=== PATIENT | female | born 1950 | race African-American/Black ===

== ENCOUNTER 2016-10-10 07:09 | Inpatient (IN) ==
[~2016-10-10 07:09] MED LIST: CLINDAMYCIN INJ 900 MG in PREMIX 1 EACH IV ONE; DIAZEPAM 5 MG TABLET PO ONE; FAMOTIDINE 20 MG TABLET PO ONE; LACTATED RINGERS 1,000 ML IV SCH; VANCOMYCIN INJ 1,000 MG in SODIUM CHLORIDE 0.9% 250 ML IV ONE
--- NOTE | 2016-10-10 07:33 | EKG Report ---
Stationary ECG Study [facility] Test Date: 10/10/2016 7:31:06 AM Pat Name: RAYMUNDO PARRY Department: Room: 612 Gender: F Pre Owned Sales Consultant: VEENA : 1950 Requested by: Jatinder Siddiqi Order Number: [id number] Reading MD: JUANITA BEAVER Intervals [place] Rate: 61 P: 10 [place]: 201 QRS: -11 QRSD: 104 T: 0 QT: 399 QTc: 403 Interpretive Statements SINUS RHYTHM POSSIBLE ANTERIOR MYOCARDIAL INFARCTION, PROBABLY OLD Electronically Signed On 10-10-16 09:31:07 CDT by JUANITA BEAVER [email or web address]
[2016-10-10] MEDS ORDERED: DIAZEPAM 5 MG TABLET ONE (09:20)
[2016-10-10] MEDS ORDERED: FAMOTIDINE 20 MG TABLET ONE (09:20)
[2016-10-10] MEDS ORDERED: CLINDAMYCIN INJ 50 ML IV ONE (09:21)
[2016-10-10] MEDS ORDERED: VANCOMYCIN 1,000 MG VIAL ONE (10:26)
[2016-10-10] MEDS ORDERED: SODIUM CHLORIDE 0.9% 250 ML IV ONE (10:27)
[2016-10-10] MEDS ORDERED: VANCOMYCIN INJ 1,000 MG in SODIUM CHLORIDE 0.9% 250 ML IV ONE ×3 (10:30→22:00)
--- NOTE | 2016-10-10 10:40 | History and Physical Update ---
History and Physical Update - History and Physical H&P was reviewed, the patient examined and there: are no changes in the patients condition since last H&P was completed.
[2016-10-10] MEDS ORDERED: ONDANSETRON 4 MG/2 ML VIAL IV PRN ×2 (12:40→15:16)
[2016-10-10] MEDS ORDERED: ZALEPLON 5 MG CAPSULE PO PRN (12:40)
[2016-10-10] MEDS ORDERED: oxyCODONE IR 5 MG TABLET PO PRN ×2 (12:40)
[2016-10-10] MEDS ORDERED: MORPHINE 2 MG/1 ML SYRINGE IV PRN ×2 (12:40)
[2016-10-10] MEDS ORDERED: diphenhydrAMINE CAP 25 MG CAPSULE PO PRN (12:40)
--- NOTE | 2016-10-10 12:46 | Operative Note ---
Procedure: DIAGNOSIS: Left knee primary osteoarthrosis. History of previous distal and midshaft femur fractures with retained femoral nail PROCEDURE: Left total knee arthroplasty (cpt #62944) SURGEON: Frankie ANESTHESIA: Spinal converted to general with a postoperative adductor canal block PROCEDURE and FINDINGS: After adequate was induced, the patient's knee was prepped and draped in the usual sterile fashion. The limb was exsanguinated with Esmarch. Tourniquet was inflated to 300 mmHg. A median parapatellar approach was made. Femur was cut using the Trumatch guide for the distal cut. and a 4 in 1 cutting jig in 5 degrees of valgus. ACL and menisci were excised. Tibia was cut using intramedullary guide. Patella was cut using freehand technique. Components were trialed. Tibial fin was prepared. Components are cemented in place using Palacos cement and modern cementing techniques. Cement was removed. A 1/8 inch Hemovac drain was placed. The knee was well-balanced and full range of motion with central tracking patella. Deep layers closed with 0-0 Vicryl. Superficial layers were closed with 2-0 and 3-0 Vicryl. Skin was approximated with priscila. Bacitracin and a sterile dressing was applied. Patient was transferred to recovery. A postoperative adductor canal block is anticipated. COMPONENTS: The Modusly system was used. 5 left standard femur, 5 tibia, 6 liner, 35 mm patella TOURNIQUET TIME: 60 minutes Surgeon / Physician: Jatinder David Jr. Discharge Plan - Discharge Medications No Action Atenolol/Chlorthalidone [Atenolol-Chlorthalidone 100-25] 1 each PO DAILY Aspirin [Ecotrin] 81 mg PO DAILY Naproxen Sodium [Naprelan] 500 mg PO BID Cetirizine HCl [Cetirizine Tab] 10 mg PO DAILY - Follow Up or Referral - Forms/Instructions
[2016-10-10] MEDS ORDERED: TRANEXAMIC ACID 1,000 MG/10 ML VIAL IV ONE (13:55)
[2016-10-10] MEDS ORDERED: MIDAZOLAM 2 MG/2 ML VIAL ONE (14:29)
[2016-10-10] MEDS ORDERED: SODIUM CHLORIDE 0.9% 1,000 ML IV ONE (14:29)
[2016-10-10] MEDS ORDERED: fentaNYL 100 MCG/2 ML VIAL ONE (14:29)
[2016-10-10] MEDS ORDERED: ACETAMINOPHEN 1,000 MG/100 ML VIAL IV ONE (14:29)
[2016-10-10] MEDS ORDERED: ePHEDrine 50 MG/ML AMP ONE (14:29)
[2016-10-10] MEDS ORDERED: SODIUM CHLORIDE 0.9% 100 ML IV ONE (14:29)
[2016-10-10] MEDS ORDERED: SEVOFLURANE 1 UNIT/15 MINUTE INH ONE (14:33)
[2016-10-10] MEDS ORDERED: ROPIVACAINE 0.5% 30 ML VIAL ONE (14:57)
[2016-10-10] MEDS ORDERED: HYDROmorphone 2 MG/1 ML VIAL ONE (15:00)
[2016-10-10] MEDS ORDERED: HYDROmorphone 2 MG/1 ML VIAL IV PRN (15:16)
[2016-10-10] MEDS ORDERED: KETOROLAC 30 MG/1 ML VIAL ONE (15:36)
[2016-10-10] MEDS: KETOROLAC 30 MG/1 ML VIAL IV SCH ×2 (15:40→21:58)
--- NOTE | 2016-10-10 15:54 | XRay Report ---
Left knee, 2 views. Indication: Postoperative. Comparison: April 20, 2015. There has been a left total knee replacement. The hardware is in good position. Surgical drains and skin priscila project over the soft tissues. There has previously been noted to be an intramedullary chuck stabilizing a healed fracture of the femoral shaft. This chuck is still in place. The distal screw within this chuck is chronically fractured and angulated. Impression: Expected appearance of the total knee replacement. Evidence of old traumatic injury of the left femur, with a long-term intramedullary chuck having a broken screw distally. PROCEDURE INTERPRETED AT [facility] DEPARTMENT OF RADIOLOGY Final Report Signed by: Dr. Jeni Fajardo
[2016-10-10] MEDS: LACTATED RINGERS 1,000 ML IV SCH ×2 (16:25→23:36)
--- NOTE | 2016-10-10 16:30 | Pulmonology Progress Note ---
Pulmonary - PN: Subj Interval history: Patient is a 66-year-old black lady that is very overweight with degenerative arthritis. She has been having trouble with her left knee and came in for left knee replacement. A couple years ago she had a right knee replacement and did relatively well postop. She had surgery today and had no trouble with anesthesia. She says she is breathing okay but is hurting a lot. She feels like her knee is throbbing a good bit now. Otherwise she has been doing fairly well. Exam (Progress Note) - Constitutional Vitals: Period Temp Pulse Resp BP Sys/Ramesh Pulse Ox Last 24 Hr 97.1 F-98.0 F 57-66 12-20 123-172/77-103 92-100 General appearance: mild distress (She is starting to hurt a little.), over weight - Head Head exam: Present: normal inspection, normocephalic - Eye Eye exam: Present: EOMI. Absent: scleral icterus Pupils: Present: LISSET - ENT ENT exam: Present: normal exam - Neck Neck exam: Present: normal inspection. Absent: lymphadenopathy, thyromegaly - Respiratory Respiratory exam: Present: clear to auscultation bilaterally. Absent: wheezes - Cardiovascular Cardiovascular exam: Present: regular rate and rhythm. Absent: gallop, systolic murmur - GI/Abdominal GI/Abdominal exam: Present: normal bowel sounds, soft. Absent: organomegaly, tenderness - Extremities Exam Extremities exam: Present: other (Left leg is wrapped at present.). Absent: calf tenderness, edema - Neurological Exam Neurological exam: Present: alert, oriented X3, CN II-XII intact - Psychiatric Psychiatric exam: Present: normal affect - Skin Skin exam: Present: warm, dry Assessment and Plan (1) Degenerative arthritis Status: Acute Assessment and plan: The patient does have significant degenerative arthritis. She previously had a right knee replacement. Now she comes in for a left knee replacement Current Visit: Yes (2) Status post total left knee replacement Status: Acute Assessment and plan: She had surgery today and had her left knee replaced. She is doing very well postop so far. Current Visit: Yes (3) Obesity Status: Acute Assessment and plan: The patient is quite large with a BMI of 50. Current Visit: Yes (4) Hypertension Status: Acute Assessment and plan: Her blood pressure stable at this point. Current Visit: Yes
[2016-10-10] MEDS: ACETAMINOPHEN 500 MG TABLET PO SCH ×2 (16:49→21:57)
--- NOTE | 2016-10-10 17:31 | Anesthesia Post-Op ---
Anesthesia Post OP - Post Ansesthetic Evaluation Patient seen in post op: Yes Resp: within normal limits CV: within normal limits Mental: within normal limits Temp: within normal limits [id number]: within normal limits Nausea and Vomiting: within normal limits Pain: within normal limits
[2016-10-10] MEDS: CLINDAMYCIN INJ 900 MG in PREMIX 1 EACH IV SCH (17:40)
[2016-10-10] MEDS: DOCUSATE SODIUM 100 MG CAPSULE PO SCH (20:36)
[2016-10-11] MEDS: CLINDAMYCIN INJ 900 MG in PREMIX 1 EACH IV SCH (02:24)
[2016-10-11] MEDS: KETOROLAC 30 MG/1 ML VIAL IV SCH ×2 (04:49→09:14)
[2016-10-11] MEDS: ACETAMINOPHEN 500 MG TABLET PO SCH ×2 (04:49→09:41)
[2016-10-11 06:07] LABS: Basophils # 0.1 10*3/uL (0.0-0.2); Basophils % 0.4 % (0.0-0.8); Eosinophils # 0.1 10*3/uL (0.0-0.87); Eosinophils % 1.2 % (0.00-10.9); Hematocrit 39.5 VOL% (35.7-47.0); Immature Granulocytes % 2.8 %; Immature Granulocytes Absolute 0.33 #; Lymphocytes # 2.1 10*3/uL (1.4-4.0); Lymphocytes % 17.5 % (21.3-54.2); Mean Corpuscular HGB Conc 30.4 GM/DL (32-36); Mean Corpuscular Hemoglobin 24 PG (27-34); Mean Corpuscular Volume 78.4 FL (87-102); Mean Platelet Volume 10.5 FL (9.6-12.0); Monocytes # 1.5 10*3/uL (0.11-0.8); Monocytes % 13.2 % (1.7-12.7); Neutrophils # 7.6 10*3/uL (1.4-7.4); Neutrophils % 64.9 % (38.7-73.9); Platelet Count 208 T/CUMM (130-400); Red Blood Count 5.04 MC/CUMM (3.8-5.5); Red Cell Distribution Width 16.6 % (9.3-17.3); White Blood Count 11.7 T/CUMM (4-12)
[2016-10-11 06:34] LABS: Calcium 8.4 MG/DL (8.5-10.1); Osmolality,Calculated 284.4 MOS/KG (273-304)
--- NOTE | 2016-10-11 08:25 | Orthopedic Progress Note ---
Orthopedics - Subjective Interval history: Comfortable post op. nv ok. dressing dry. mobilize with therapy. Exam - Constitutional Vitals: Period Temp Pulse Resp BP Sys/Ramesh Pulse Ox Last 24 Hr 97.1 F-98.9 F 57-76 12-20 107-174/55-103 92-100 Results - Labs CBC & BMP: 10/11/16 04:34 10/11/16 04:34
--- NOTE | 2016-10-11 08:54 | Pulmonology Progress Note ---
Pulmonary - PN: Subj Interval history: Patient is a 66-year-old black lady that is very overweight with degenerative arthritis. She has been having trouble with her left knee and came in for left knee replacement. A couple years ago she had a right knee replacement and did relatively well postop. She had surgery and had no trouble with anesthesia. She had a fairly good night and is breathing okay. She still has some knee pain but feels better. She is going to start physical therapy today. Exam (Progress Note) - Constitutional Vitals: Period Temp Pulse Resp BP Sys/Ramesh Pulse Ox Last 24 Hr 97.1 F-98.9 F 57-76 12-20 107-174/55-103 92-100 Exam: General appearance: no distress (She is alert and looks reasonably comfortable now.), over weight - Head Head exam: Present: normal inspection, normocephalic - Eye Eye exam: Present: EOMI. Absent: scleral icterus Pupils: Present: LISSET - ENT ENT exam: Present: normal exam - Neck Neck exam: Present: normal inspection. Absent: lymphadenopathy, thyromegaly - Respiratory Respiratory exam: Present: clear to auscultation bilaterally. She has good breath sounds bilaterally. Absent: wheezes - Cardiovascular Cardiovascular exam: Present: regular rate and rhythm. Absent: gallop, systolic murmur - GI/Abdominal GI/Abdominal exam: Present: normal bowel sounds, soft. Absent: organomegaly, tenderness - Extremities Exam Extremities exam: Present: other (Left leg is wrapped at present.). Absent: calf tenderness, edema - Neurological Exam Neurological exam: Present: alert, oriented X3, CN II-XII intact, no focal deficits. - Psychiatric Psychiatric exam: Present: normal affect - Skin Skin exam: Present: warm, dry Results - Labs CBC & BMP: 10/11/16 04:34 10/11/16 04:34 Assessment and Plan (1) Degenerative arthritis Status: Acute Assessment and plan: The patient does have significant degenerative arthritis. She previously had a right knee replacement. Now she comes in for a left knee replacement. Current Visit: Yes (2) Status post total left knee replacement Status: Acute Assessment and plan: She had surgery and had a left knee replacement. She is very sore through the night but is doing better today. She will start physical therapy today. Current Visit: Yes (3) Obesity Status: Acute Assessment and plan: The patient is quite large with a BMI of 50. Current Visit: Yes (4) Hypertension Status: Acute Assessment and plan: Her blood pressure stable at this point. She appears to be medically stable. Current Visit: Yes
[2016-10-11] MEDS ORDERED: KETOROLAC 30 MG/1 ML VIAL ONE (09:06)
[2016-10-11] MEDS: DOCUSATE SODIUM 100 MG CAPSULE PO SCH ×2 (09:12→21:31)
[2016-10-11] MEDS: CETIRIZINE 10 MG TABLET PO SCH (09:13)
[2016-10-11] MEDS: ATENOLOL/CHLORTHALIDONE 50-25 MG TABLET PO SCH (09:15)
[2016-10-11] MEDS: FONDAPARINUX 2.5 MG/0.5 ML SYRINGE SUBCUT SCH (09:16)
[2016-10-11] MEDS: ATENOLOL 50 MG TABLET PO SCH (09:16)
--- NOTE | 2016-10-11 14:29 | Pathology Report from [facility] ---
[facility] ACCESSION # : [id number] PATIENT NAME : Raymundo Parry ORDERING DR : LORE RUSSO MD CLINICAL HX: Left knee osteoarthritis POST-OP DX: Same SPECIMEN INFO: Left knee bone and tissue GROSS DESCRIPTION: The specimen is received in formalin labeled with the patients name and consists of multiple fragments of bone, soft tissue and cartilage measuring 13.0 x 6.5 cm in aggregate. The articular surfaces are focally degenerative with areas of subchondral eburnation seen. Skein Tier tissue submitted in one cassette. DIAGNOSIS FOR RAYMUNDO PARRY: LEFT KNEE BONE AND TISSUE, TOTAL REPLACEMENT: Osteoarthritis. COLLECTED DATE: 10/10/2016 [facility] REPORT DATE: 10/11/2016 ELECTRONICALLY SIGNED BY: You Burnett M.D. 10/11/2016 - 9:20:39 [facility] INSANEZuliema
[2016-10-11] MEDS: CELECOXIB 200 MG CAPSULE PO SCH (17:44)
[2016-10-12 05:26] LABS: Basophils # 0.1 10*3/uL (0.0-0.2); Basophils % 0.4 % (0.0-0.8); Eosinophils # 0.3 10*3/uL (0.0-0.87); Eosinophils % 1.8 % (0.00-10.9); Hematocrit 39.4 VOL% (35.7-47.0); Hemoglobin 12.3 GM/DL (12.0-16.0); Immature Granulocytes % 2.6 %; Immature Granulocytes Absolute 0.35 #; Lymphocytes # 1.5 10*3/uL (1.4-4.0); Mean Corpuscular HGB Conc 31.2 GM/DL (32-36); Mean Corpuscular Hemoglobin 24 PG (27-34); Mean Corpuscular Volume 76.7 FL (87-102); Mean Platelet Volume 10.3 FL (9.6-12.0); Monocytes # 1.5 10*3/uL (0.11-0.8); Monocytes % 10.8 % (1.7-12.7); Neutrophils % 73.4 % (38.7-73.9); Platelet Count 199 T/CUMM (130-400); Red Blood Count 5.14 MC/CUMM (3.8-5.5); Red Cell Distribution Width 16.2 % (9.3-17.3); White Blood Count 13.6 T/CUMM (4-12)
[2016-10-12] MEDS: FONDAPARINUX 2.5 MG/0.5 ML SYRINGE SUBCUT SCH (06:30)
[2016-10-12 06:39] LABS: Eosinophils 2 % (0-10); Hypochromasia 1+; Lymphocytes 15 % (20-55); Platelet Estimate Adequate; Segmented Neutrophils 65 % (50-85); Total Cells Counted 100
[2016-10-12 06:40] LABS: Giant Platelets Few; Ovalocytes Slight
[2016-10-12] MEDS: MAGNESIUM HYDROXIDE SUSP 30 ML UDCUP PO PRN ×2 (07:50→13:45)
[2016-10-12] MEDS: CELECOXIB 200 MG CAPSULE PO SCH (08:00)
[2016-10-12] MEDS: DOCUSATE SODIUM 100 MG CAPSULE PO SCH ×2 (08:00→20:03)
[2016-10-12] MEDS: CETIRIZINE 10 MG TABLET PO SCH (08:00)
[2016-10-12] MEDS: ATENOLOL/CHLORTHALIDONE 50-25 MG TABLET PO SCH (08:00)
[2016-10-12] MEDS: ATENOLOL 50 MG TABLET PO SCH (08:00)
--- NOTE | 2016-10-12 08:43 | Orthopedic Progress Note ---
Orthopedics - Subjective Interval history: Comfortable. Dressing clean, dry and intact. Left lower extremities neurovascularly unchanged. Plan: Continue with physical therapy. Plan discharge home tomorrow. Exam - Constitutional Vitals: Period Temp Pulse Resp BP Sys/Ramehs Pulse Ox Last 24 Hr 97.6 F-100.2 F 70-95 16-20 100-129/50-67 92-100 Results - Labs CBC & BMP: 10/12/16 04:59 10/11/16 04:34 Specialty Discharge - Follow Up or Referrals Follow up with: Jatinder David Jr., MD [Physician] -
--- NOTE | 2016-10-12 09:20 | Pulmonology Progress Note ---
Pulmonary - PN: Subj Interval history: Patient is a 66-year-old black lady that is very overweight with degenerative arthritis. She has been having trouble with her left knee and came in for left knee replacement. A couple years ago she had a right knee replacement and did relatively well postop. She had surgery and had no trouble with anesthesia. She had a fairly good night and is breathing okay. She says she did well with physical therapy yesterday and is feeling a little better. She says she wants to try to go home to do therapy as an outpatient. Overall she is feeling better. Exam (Progress Note) - Constitutional Vitals: Period Temp Pulse Resp BP Sys/Ramesh Pulse Ox Last 24 Hr 97.6 F-100.2 F 70-95 16-20 100-129/50-67 92-100 Exam: General appearance: no distress (She is alert and looks reasonably comfortable now.), over weight - Head Head exam: Present: normal inspection, normocephalic - Eye Eye exam: Present: EOMI. Absent: scleral icterus Pupils: Present: LISSET - ENT ENT exam: Present: normal exam - Neck Neck exam: Present: normal inspection. Absent: lymphadenopathy, thyromegaly - Respiratory Respiratory exam: Present: clear to auscultation bilaterally. She has good breath sounds bilaterally. Absent: wheezes - Cardiovascular Cardiovascular exam: Present: regular rate and rhythm. Absent: gallop, systolic murmur - GI/Abdominal GI/Abdominal exam: Present: normal bowel sounds, soft. Absent: organomegaly, tenderness - Extremities Exam Extremities exam: Present: other (Left leg is wrapped at present. She has no calf tenderness and her swelling is not too bad.). Absent: calf tenderness, edema - Neurological Exam Neurological exam: Present: alert, oriented X3, CN II-XII intact, no focal deficits. - Psychiatric Psychiatric exam: Present: normal affect - Skin Skin exam: Present: warm, dry Results - Labs CBC & BMP: 10/12/16 04:59 10/11/16 04:34 Assessment and Plan (1) Degenerative arthritis Status: Acute Assessment and plan: The patient does have significant degenerative arthritis. She previously had a right knee replacement. Now she comes in for a left knee replacement. Current Visit: Yes (2) Status post total left knee replacement Status: Acute Assessment and plan: She had surgery and had a left knee replacement. She is doing well and starting to do physical therapy much better. She says her leg is better and she is getting around a little better. Current Visit: Yes (3) Obesity Status: Acute Assessment and plan: The patient is quite large with a BMI of 50. Current Visit: Yes (4) Hypertension Status: Acute Assessment and plan: Her blood pressure stable at this point. She appears to be medically stable. Current Visit: Yes Specialty Discharge - Follow Up or Referrals Follow up with: Jatinder David Jr., MD [Physician] -
[2016-10-13] MEDS: FONDAPARINUX 2.5 MG/0.5 ML SYRINGE SUBCUT SCH (05:56)
--- NOTE | 2016-10-13 07:07 | Discharge Summary ---
Hospital Course - Hospital Course Hospital Course: Emy Fierro was admitted after undergoing a left total knee replacement. She received perioperative DVT and antimicrobial prophylaxis. She received physical therapy. She was discharged home in stable condition with routine instructions. Dressings clean, dry and intact. Range of motion is from 5-85. Discharge instructions were reviewed Specialty Discharge - Follow Up or Referrals Follow up with: Jatinder David Jr., MD [Physician] - Discharge Plan - Discharge Data Disposition: Disch To Home/Self Care Discharge Diet: advance to your usual diet Hygiene: may shower Weight Bearing at Discharge: weight bear as tolerated Driving: not until seen by doctor - Discharge Medications New HYDROcodone/ACETAMIN 7.5-325 [Almond 7.5-325] 1 tablet PO Q4H PRN tablet PRN Reason: Pain Moderate (4-7) HYDROcodone/ACETAMIN 7.5-325 [Almond 7.5-325] 2 tablet PO Q4H PRN tablet PRN Reason: Moderate Pain unrelieved by 1 Continue Atenolol/Chlorthalidone [Atenolol-Chlorthalidone 100-25] 1 each PO DAILY Aspirin [Ecotrin] 81 mg PO DAILY Naproxen Sodium [Naprelan] 500 mg PO BID Cetirizine HCl [Cetirizine Tab] 10 mg PO DAILY - Follow Up or Referral Follow Up: Jatinder David Jr., MD [Physician] - - Forms/Instructions Additional Discharge Instructions: Daily dry dressing changes. Weightbearing as tolerated. CPM for 3 weeks. Arrange walker and bedside commode for home use. Wear JOHANA hose for 1 month. Set up outpatient physical therapy 3 times a week for 4 weeks. Follow-up appointment in 10-14 days. Prescription for Almond 7.5 with 30 tablets was written. Take aspirin 325 mg by mouth daily for 21 days. Exam - Constitutional Vitals: Period Temp Pulse Resp BP Sys/Ramesh Pulse Ox Last 24 Hr 96.9 F-99.3 F 76-87 18-20 102-147/51-78 95-99 DS: Provider Date of admission: 10/10/16 07:09 Primary care physician: . No PCP Attending physician on admission: Jatinder David Jr., Consults: 10/10/16 12:40 Consult to Case Mgmt/Social Srvs [CONS] Routine Reason for Case Mgmt/Social Srvs: Rehab Home Health Equipment Consult Comment: Bedside Commode, CPM, Walker Consult to Occupational Therapy [CONS] Routine Reason for Occupational Therapy: Evaluate and Treat Consult Comment: ADL's Consult to Physical Therapy [CONS] Routine Reason for Physical Therapy: Evaluate and Treat Gait Training Consult Comment: no cpm 10/10/16 16:13 Consult to Physician [CONS] Routine Comment: Consulting Provider: Tj Yu Consulting Provider Notified: Yes When should Consulting Provider be notified: Now Person Notified: magui saleh Date Notified: 10/10/16 Time Notified: 16:14 10/10/16 16:49 Consult to Pastoral Services [CONS] Routine Comment: Pastoral Screen: Request Analyzer Sales Visit Pastoral Screen Source of Request: Patient Discharging clinician: Jatinder David Jr., Expected date of discharge: 10/13/16
--- NOTE | 2016-10-13 08:52 | Pulmonology Progress Note ---
Pulmonary - PN: Subj Interval history: Patient is a 66-year-old black lady that is very overweight with degenerative arthritis. She has been having trouble with her left knee and came in for left knee replacement. A couple years ago she had a right knee replacement and did relatively well postop. She had surgery and had no trouble with anesthesia. She had a fairly good night and is breathing okay. She says she did well with physical therapy yesterday and is feeling a little better. She has done well each day and is doing more activity. She says her leg pain is better and she will go home with outpatient physical therapy. Exam (Progress Note) - Constitutional Vitals: Period Temp Pulse Resp BP Sys/Ramesh Pulse Ox Last 24 Hr 96.8 F-99.3 F 76-87 18-20 107-166/51-81 94-99 Exam: General appearance: no distress (She is alert and looks reasonably comfortable now.), over weight - Head Head exam: Present: normal inspection, normocephalic - Eye Eye exam: Present: EOMI. Absent: scleral icterus Pupils: Present: LISSET - ENT ENT exam: Present: normal exam - Neck Neck exam: Present: normal inspection. Absent: lymphadenopathy, thyromegaly - Respiratory Respiratory exam: Present: clear to auscultation bilaterally. She has good breath sounds bilaterally. Absent: wheezes - Cardiovascular Cardiovascular exam: Present: regular rate and rhythm. Absent: gallop, systolic murmur - GI/Abdominal GI/Abdominal exam: Present: normal bowel sounds, soft. Absent: organomegaly, tenderness - Extremities Exam Extremities exam: Present: other (Left knee looks good and she is not having much swelling now. ) - Neurological Exam Neurological exam: Present: alert, oriented X3, CN II-XII intact, no focal deficits. - Psychiatric Psychiatric exam: Present: normal affect - Skin Skin exam: Present: warm, dry Results - Labs CBC & BMP: 10/12/16 04:59 10/11/16 04:34 Assessment and Plan (1) Degenerative arthritis Status: Acute Assessment and plan: The patient does have significant degenerative arthritis. She previously had a right knee replacement. She is doing well postop. Current Visit: Yes (2) Status post total left knee replacement Status: Acute Assessment and plan: She had surgery and had a left knee replacement. She is doing well and is getting around nicely with physical therapy. She feels like she can go home today. Current Visit: Yes (3) Obesity Status: Acute Assessment and plan: The patient is quite large with a BMI of 50. Current Visit: Yes (4) Hypertension Status: Acute Assessment and plan: Her blood pressure stable at this point. She appears to be medically stable. She has not had any medical problems and will continue her home medicines. Current Visit: Yes Specialty Discharge - Follow Up or Referrals Follow up with: Jatinder David Jr., MD [Physician] -
[2016-10-13] MEDS: CELECOXIB 200 MG CAPSULE PO SCH (09:54)
[2016-10-13] MEDS: DOCUSATE SODIUM 100 MG CAPSULE PO SCH (09:54)
[2016-10-13] MEDS: CETIRIZINE 10 MG TABLET PO SCH (09:54)
[2016-10-13] MEDS: ATENOLOL 50 MG TABLET PO SCH (09:54)
[2016-10-13] MEDS: ATENOLOL/CHLORTHALIDONE 50-25 MG TABLET PO SCH (09:55)
[2016-10-13 11:42] VITALS: BP 126/70
== END 2016-10-13 12:45 | disposition home or self-care (01) | DRG 302 ==
LOC: N.SDSINP 07:09 → N.3E 16:05
PROVIDERS: ADMIT Orthopaedic Surgery; ATTEND Orthopaedic Surgery

== ENCOUNTER 2020-09-12 14:00 | Inpatient (IN) ==
[2020-09-12] MEDS ORDERED: cefTRIAXone 1,000 MG in SODIUM CHLORIDE 0.9% 100 ML IV STA (14:42)
[2020-09-12] MEDS ORDERED: SODIUM CHLORIDE 0.9% 1,000 ML IV STA (14:42)
[2020-09-12] MEDS ORDERED: DEXAMETHASONE 4 MG/1 ML VIAL IV STA (14:42)
[2020-09-12 16:06] LABS: Bacteria,Urine Occasional /HPF (Few); Bilirubin,Urine Negative (Negative); Blood, Urine Negative (Negative); Glucose,Urine (UA) Negative (Negative); Hyaline Casts,Urine 15 /LPF (0-3); Ketones,Urine Negative (Negative); Mucus,Urine Few /LPF (Occasional); Nitrite,Urine Negative (Negative); Protein,Urine >=500 MG/DL; RBC,Urine 1 /HPF (0-4); Squamous Epithelial Cell,Urine Occasional /HPF (0-10); Urine Appearance CLEAR (Clear); Urine Color Amber (Yellow); Urine Specific Gravity 1.025 (1.001-1.035)
[2020-09-12 16:45] LABS: Albumin 2.5 G/DL (3.4-5.0); Bilirubin,Total 0.5 MG/DL (0.20-1.00); Calcium 7.8 MG/DL (8.5-10.1); Osmolality,Calculated 281.7 MOS/KG (273-304); Potassium 3.3 MMOL/L (3.5-5.1); Total Protein 7.2 G/DL (6.4-8.2)
[2020-09-12 16:47] LABS: Basophils % 0.2 % (0.0-0.8); Hematocrit 45.2 VOL% (35.7-47.0); Hemoglobin 13.5 GM/DL (12.0-16.0); Immature Granulocytes % 0.4 %; Immature Granulocytes Absolute 0.02 #; Lymphocytes # 1.1 10*3/uL (1.4-4.0); Lymphocytes % 23.7 % (21.3-54.2); Mean Corpuscular HGB Conc 29.9 GM/DL (32-36); Mean Corpuscular Volume 80.1 FL (87-102); Mean Platelet Volume 11.1 FL (9.6-12.0); Monocytes % 11.8 % (1.7-12.7); Neutrophils % 63.9 % (38.7-73.9); Platelet Count 134 T/CUMM (130-400); Red Blood Count 5.64 MC/CUMM (3.8-5.5); Red Cell Distribution Width 16.3 % (9.3-17.3); White Blood Count 4.5 T/CUMM (4-12)
[2020-09-12 16:51] LABS: Ferritin 822.4 ng/ml (8-252)
[2020-09-12 17:08] LABS: Atypical Lymphocytes Few; Band Neutrophils 1 % (0-10); Hypochromasia 1+; Lymphocytes 31 % (20-55); Microcytosis 1+; Segmented Neutrophils 59 % (50-85); Total Cells Counted 100
[2020-09-12 17:09] LABS: Platelet Estimate Normal
[2020-09-12] MEDS ORDERED: AZITHROMYCIN INJ 500 MG in SODIUM CHLORIDE 0.9% 250 ML IV ONE (17:42)
[2020-09-12] MEDS ORDERED: MELATONIN 3 MG TABLET PO PRN (17:42)
[2020-09-12] MEDS ORDERED: ACETAMINOPHEN 325 MG TABLET PO PRN (17:49)
[2020-09-12] MEDS ORDERED: ONDANSETRON 4 MG/2 ML VIAL IV PRN (17:49)
[2020-09-12] MEDS ORDERED: ENOXAPARIN 40 MG/0.4 ML SYRINGE SUBCUT SCH (18:00)
[2020-09-12] MEDS ORDERED: POTASSIUM CHLORIDE 20 MEQ TABLET PO ONE (18:36)
[2020-09-12] MEDS ORDERED: ENOXAPARIN 40 MG/0.4 ML SYRINGE ONE (18:59)
[2020-09-12] MEDS: SODIUM CHLOR 0.45% KCL 20 MEQ 20 MEQ/1,000 ML BAG IV SCH (20:00)
[2020-09-12] MEDS: FAMOTIDINE 20 MG TABLET PO SCH (20:10)
[2020-09-12] MEDS: MELATONIN 3 MG TABLET PO SCH (20:10)
[2020-09-12] MEDS: ASCORBIC ACID 500 MG TABLET PO SCH (20:10)
[2020-09-13] MEDS: SODIUM CHLOR 0.45% KCL 20 MEQ 20 MEQ/1,000 ML BAG IV SCH ×2 (06:05→17:05)
[2020-09-13 06:45] LABS: Hematocrit 42.9 VOL% (35.7-47.0); Hemoglobin 13.4 GM/DL (12.0-16.0); Immature Granulocytes % 0.6 %; Immature Granulocytes Absolute 0.02 #; Lymphocytes % 31.3 % (21.3-54.2); Mean Corpuscular HGB Conc 31.2 GM/DL (32-36); Mean Corpuscular Volume 78.1 FL (87-102); Mean Platelet Volume 10.8 FL (9.6-12.0); Monocytes % 12.3 % (1.7-12.7); Neutrophils % 55.8 % (38.7-73.9); Platelet Count 113 T/CUMM (130-400); Red Blood Count 5.49 MC/CUMM (3.8-5.5); Red Cell Distribution Width 15.9 % (9.3-17.3); White Blood Count 3.2 T/CUMM (4-12)
[2020-09-13 07:06] LABS: Band Neutrophils 1 % (0-10); Lymphocytes 28 % (20-55); Segmented Neutrophils 59 % (50-85); Total Cells Counted 100
[2020-09-13 07:07] LABS: Hypochromasia Slight; Microcytosis Slight; Platelet Estimate Decreased
[2020-09-13 07:32] LABS: Albumin 2.3 G/DL (3.4-5.0); Bilirubin,Total 0.4 MG/DL (0.20-1.00); Ferritin 797.5 ng/ml (8-252); Osmolality,Calculated 279.8 MOS/KG (273-304); Potassium 4.2 MMOL/L (3.5-5.1); Total Protein 6.8 G/DL (6.4-8.2)
[2020-09-13] MEDS: DEXAMETHASONE 4 MG/1 ML VIAL IV SCH (08:47)
[2020-09-13] MEDS: ZINC GLUCONATE 50 MG TABLET PO SCH (08:47)
[2020-09-13] MEDS: CHOLECALCIFEROL 1,000 UNIT TABLET PO SCH (08:48)
[2020-09-13] MEDS: FAMOTIDINE 20 MG TABLET PO SCH ×2 (08:48→21:16)
[2020-09-13] MEDS: ASCORBIC ACID 500 MG TABLET PO SCH ×2 (08:48→21:16)
[2020-09-13] MEDS: CETIRIZINE 10 MG TABLET PO SCH (08:48)
[2020-09-13] MEDS ORDERED: AZITHROMYCIN 250 MG TABLET PO SCH (09:00)
[2020-09-13] MEDS: ALBUTEROL INHALER 18 GM INH SCH ×2 (14:55→18:24)
[2020-09-13] MEDS ORDERED: REMDESIVIR 200 MG in SODIUM CHLORIDE 0.9% 210 ML IV ONE (18:00)
[2020-09-13] MEDS: ENOXAPARIN 40 MG/0.4 ML SYRINGE SUBCUT SCH (18:24)
[2020-09-13] MEDS: MELATONIN 3 MG TABLET PO SCH (21:16)
[2020-09-13] MEDS: AZITHROMYCIN INJ 500 MG in SODIUM CHLORIDE 0.9% 250 ML IV SCH (21:46)
[2020-09-14] MEDS: ALBUTEROL INHALER 18 GM INH SCH ×7 (00:47→22:59)
[2020-09-14] MEDS: SODIUM CHLOR 0.45% KCL 20 MEQ 20 MEQ/1,000 ML BAG IV SCH ×3 (03:00→22:58)
[2020-09-14 03:42] LABS: ABG Base Excess 1.8 MMOL/L (-2.5-2.5); ABG HCO3 25.8 MMOL/L (20-26); ABG Oxygen Saturation 91.9 % (95-100); ABG PCO2 31.3 MM HG (35-48); ABG PH 7.496 (7.35-7.45); ABG PO2 54.8 MM HG (80-95); ABG TCO2 20.8 MMOL/L (23-27)
[2020-09-14 05:55] LABS: Bacteria,Urine Occasional /HPF (Few); Bilirubin,Urine Negative (Negative); Blood, Urine Negative (Negative); Glucose,Urine (UA) Negative (Negative); Ketones,Urine Negative (Negative); Mucus,Urine Occasional /LPF (Occasional); Nitrite,Urine Negative (Negative); Protein,Urine >=500 MG/DL; RBC,Urine 5 /HPF (0-4); Squamous Epithelial Cell,Urine Occasional /HPF (0-10); Urine Appearance CLEAR (Clear); Urine Color Yellow (Yellow); Urine Specific Gravity 1.019 (1.001-1.035); Urine Urobilinogen < 2.0 EU/DL (0.2-1.0)
[2020-09-14 07:23] LABS: Basophils % 0.2 % (0.0-0.8); Hematocrit 45.4 VOL% (35.7-47.0); Hemoglobin 14.3 GM/DL (12.0-16.0); Immature Granulocytes % 0.7 %; Immature Granulocytes Absolute 0.04 #; Lymphocytes # 0.9 10*3/uL (1.4-4.0); Mean Corpuscular HGB Conc 31.5 GM/DL (32-36); Mean Corpuscular Volume 77.6 FL (87-102); Mean Platelet Volume 10.8 FL (9.6-12.0); Monocytes % 7.5 % (1.7-12.7); Neutrophils % 76.6 % (38.7-73.9); Platelet Count 109 T/CUMM (130-400); Red Blood Count 5.85 MC/CUMM (3.8-5.5); Red Cell Distribution Width 15.9 % (9.3-17.3); White Blood Count 5.7 T/CUMM (4-12)
[2020-09-14 07:41] LABS: Albumin 2.4 G/DL (3.4-5.0); Bilirubin,Total 0.7 MG/DL (0.20-1.00); Calcium 8.1 MG/DL (8.5-10.1); Osmolality,Calculated 277.5 MOS/KG (273-304); Potassium 3.6 MMOL/L (3.5-5.1)
[2020-09-14] MEDS ORDERED: MAGNESIUM SULF RIDER 2 GM/50 ML PREMIX IV PRN (08:05)
[2020-09-14] MEDS: CHOLECALCIFEROL 1,000 UNIT TABLET PO SCH (09:16)
[2020-09-14] MEDS: ASCORBIC ACID 500 MG TABLET PO SCH ×2 (09:16→20:48)
[2020-09-14] MEDS: DEXAMETHASONE 4 MG/1 ML VIAL IV SCH (09:16)
[2020-09-14] MEDS: FAMOTIDINE 20 MG TABLET PO SCH ×2 (09:16→20:48)
[2020-09-14] MEDS: CETIRIZINE 10 MG TABLET PO SCH (09:16)
[2020-09-14] MEDS: ZINC GLUCONATE 50 MG TABLET PO SCH (09:16)
[2020-09-14] MEDS ORDERED: ALPRAZolam 0.25 MG TABLET PO PRN (10:21)
[2020-09-14 11:41] LABS: ABG Base Excess 3.1 MMOL/L (-2.5-2.5); ABG HCO3 26.9 MMOL/L (20-26); ABG Oxygen Saturation 85.8 % (95-100); ABG PCO2 33.4 MM HG (35-48); ABG PH 7.497 (7.35-7.45); ABG PO2 46.2 MM HG (80-95); ABG TCO2 22.3 MMOL/L (23-27)
[2020-09-14] MEDS ORDERED: SODIUM CHLORIDE 0.9% 1,000 ML IV PRN (12:30)
[2020-09-14] MEDS: REMDESIVIR 100 MG in SODIUM CHLORIDE 0.9% 100 ML IV SCH (13:36)
[2020-09-14] MEDS ORDERED: FUROSEMIDE 40 MG/4 ML VIAL IV ONE (15:08)
[2020-09-14] MEDS: AZITHROMYCIN INJ 500 MG in SODIUM CHLORIDE 0.9% 250 ML IV SCH (18:13)
[2020-09-14] MEDS: ENOXAPARIN 40 MG/0.4 ML SYRINGE SUBCUT SCH (18:13)
[2020-09-14] MEDS: MELATONIN 3 MG TABLET PO SCH (20:48)
[2020-09-15] MEDS: ALBUTEROL INHALER 18 GM INH SCH ×6 (04:19→22:52)
[2020-09-15] MEDS: SODIUM CHLOR 0.45% KCL 20 MEQ 20 MEQ/1,000 ML BAG IV SCH ×3 (05:30→17:47)
[2020-09-15 06:47] LABS: Basophils % 0.2 % (0.0-0.8); Immature Granulocytes % 0.8 %; Immature Granulocytes Absolute 0.04 #; Lymphocytes # 1.3 10*3/uL (1.4-4.0); Lymphocytes % 24.6 % (21.3-54.2); Mean Corpuscular HGB Conc 31.1 GM/DL (32-36); Mean Corpuscular Volume 78.1 FL (87-102); Mean Platelet Volume 10.8 FL (9.6-12.0); Monocytes % 6.6 % (1.7-12.7); Neutrophils % 67.8 % (38.7-73.9); Platelet Count 143 T/CUMM (130-400); Red Blood Count 5.76 MC/CUMM (3.8-5.5); Red Cell Distribution Width 16.7 % (9.3-17.3); White Blood Count 5.1 T/CUMM (4-12)
[2020-09-15 07:07] LABS: Albumin 2.1 G/DL (3.4-5.0); Bilirubin,Total 0.6 MG/DL (0.20-1.00); Calcium 8.3 MG/DL (8.5-10.1); Osmolality,Calculated 279.4 MOS/KG (273-304); Total Protein 6.6 G/DL (6.4-8.2)
[2020-09-15] MEDS ORDERED: PHENOL 1.4% THROAT SPRAY 177 ML BOTTLE PO PRN (09:15)
[2020-09-15] MEDS: DEXAMETHASONE 4 MG/1 ML VIAL IV SCH (09:50)
[2020-09-15] MEDS: ENOXAPARIN 60 MG/0.6 ML SYRINGE SUBCUT SCH ×2 (09:50→20:57)
[2020-09-15] MEDS: FAMOTIDINE 20 MG TABLET PO SCH ×2 (09:54→20:57)
[2020-09-15] MEDS: CHOLECALCIFEROL 1,000 UNIT TABLET PO SCH (09:55)
[2020-09-15] MEDS: ZINC GLUCONATE 50 MG TABLET PO SCH (09:55)
[2020-09-15] MEDS: REMDESIVIR 100 MG in SODIUM CHLORIDE 0.9% 100 ML IV SCH (09:55)
[2020-09-15] MEDS: ASCORBIC ACID 500 MG TABLET PO SCH ×2 (09:55→20:57)
[2020-09-15] MEDS: CETIRIZINE 10 MG TABLET PO SCH (09:56)
[2020-09-15] MEDS: guaiFENesin 200 MG/10 ML UDCUP PO PRN (09:57)
[2020-09-15] MEDS ORDERED: FUROSEMIDE 40 MG/4 ML VIAL IV ONE ×2 (11:18→11:47)
[2020-09-15] MEDS: methylPREDNISolone SOD SUC 40 MG/1 ML VIAL IV SCH ×2 (16:50→20:57)
[2020-09-15] MEDS: AZITHROMYCIN INJ 500 MG in SODIUM CHLORIDE 0.9% 250 ML IV SCH (17:48)
[2020-09-15] MEDS: MELATONIN 3 MG TABLET PO SCH (20:57)
[2020-09-16] MEDS: ALBUTEROL INHALER 18 GM INH SCH ×6 (04:03→22:34)
[2020-09-16] MEDS: methylPREDNISolone SOD SUC 40 MG/1 ML VIAL IV SCH ×4 (04:03→20:32)
[2020-09-16] MEDS: SODIUM CHLOR 0.45% KCL 20 MEQ 20 MEQ/1,000 ML BAG IV SCH ×2 (04:04→09:00)
[2020-09-16 05:06] LABS: ABG Base Excess 3.2 MMOL/L (-2.5-2.5); ABG HCO3 26.8 MMOL/L (20-26); ABG Oxygen Saturation 79.4 % (95-100); ABG PCO2 38.3 MM HG (35-48); ABG PH 7.457 (7.35-7.45); ABG PO2 43.1 MM HG (80-95); ABG TCO2 23.3 MMOL/L (23-27); Allen Test Positive; Pt O2 Delivery Device Other
[2020-09-16] MEDS: ALPRAZolam 0.5 MG TABLET PO PRN ×2 (06:19→13:50)
[2020-09-16 07:21] LABS: Basophils % 0.2 % (0.0-0.8); Hematocrit 45.7 VOL% (35.7-47.0); Hemoglobin 14.2 GM/DL (12.0-16.0); Immature Granulocytes % 1.3 %; Immature Granulocytes Absolute 0.07 #; Lymphocytes # 0.9 10*3/uL (1.4-4.0); Lymphocytes % 16.2 % (21.3-54.2); Mean Corpuscular HGB Conc 31.1 GM/DL (32-36); Mean Corpuscular Volume 77.1 FL (87-102); Mean Platelet Volume 10.1 FL (9.6-12.0); Monocytes % 7.9 % (1.7-12.7); Neutrophils % 74.4 % (38.7-73.9); Platelet Count 168 T/CUMM (130-400); Red Blood Count 5.93 MC/CUMM (3.8-5.5); Red Cell Distribution Width 16.4 % (9.3-17.3); White Blood Count 5.3 T/CUMM (4-12)
[2020-09-16 07:43] LABS: Albumin 2.1 G/DL (3.4-5.0); Bilirubin,Total 0.5 MG/DL (0.20-1.00); Calcium 8.3 MG/DL (8.5-10.1); Osmolality,Calculated 280.5 MOS/KG (273-304); Potassium 4.1 MMOL/L (3.5-5.1); Total Protein 7.2 G/DL (6.4-8.2)
[2020-09-16 08:05] LABS: Hypochromasia 1+; Lymphocytes 17 % (20-55); Microcytosis 1+; Segmented Neutrophils 76 % (50-85); Total Cells Counted 100
[2020-09-16 08:06] LABS: Platelet Estimate Adequate
[2020-09-16] MEDS: REMDESIVIR 100 MG in SODIUM CHLORIDE 0.9% 100 ML IV SCH (08:40)
[2020-09-16] MEDS: ENOXAPARIN 60 MG/0.6 ML SYRINGE SUBCUT SCH ×2 (08:51→20:32)
[2020-09-16] MEDS: FAMOTIDINE 20 MG TABLET PO SCH ×3 (08:51→22:35)
[2020-09-16] MEDS: ASCORBIC ACID 500 MG TABLET PO SCH ×3 (08:51→22:36)
[2020-09-16] MEDS: CETIRIZINE 10 MG TABLET PO SCH (08:52)
[2020-09-16] MEDS: ZINC GLUCONATE 50 MG TABLET PO SCH (08:52)
[2020-09-16] MEDS: CHOLECALCIFEROL 1,000 UNIT TABLET PO SCH (08:52)
[2020-09-16] MEDS: guaiFENesin 200 MG/10 ML UDCUP PO PRN (08:53)
[2020-09-16] MEDS ORDERED: FUROSEMIDE 40 MG/4 ML VIAL IV ONE (09:00)
[2020-09-16 14:32] VITALS: BP 141/79
[2020-09-16] MEDS ORDERED: LORazepam 2 MG/1 ML VIAL IV ONE (15:26)
[2020-09-16] MEDS ORDERED: LORazepam 2 MG/1 ML VIAL IV PRN (18:02)
[2020-09-16] MEDS: AZITHROMYCIN INJ 500 MG in SODIUM CHLORIDE 0.9% 250 ML IV SCH (18:45)
[2020-09-16] MEDS ORDERED: LORazepam 2 MG/1 ML VIAL ONE ×2 (19:49→22:53)
[2020-09-16] MEDS: MELATONIN 3 MG TABLET PO SCH ×2 (20:32→22:35)
[2020-09-16] MEDS: DEXMEDETOMIDINE 200 MCG in SODIUM CHLORIDE 0.9% 48 ML IV PRN (20:42)
[2020-09-16] MEDS: LORazepam 2 MG/1 ML VIAL IV PRN (23:03)
[2020-09-17] MEDS: DEXMEDETOMIDINE 200 MCG in SODIUM CHLORIDE 0.9% 48 ML IV PRN ×2 (00:42→14:58)
[2020-09-17] MEDS: ALBUTEROL INHALER 18 GM INH SCH ×6 (03:01→23:53)
[2020-09-17] MEDS: methylPREDNISolone SOD SUC 40 MG/1 ML VIAL IV SCH ×4 (03:58→20:33)
[2020-09-17 04:16] LABS: ABG Base Excess 3.7 MMOL/L (-2.5-2.5); ABG HCO3 27.5 MMOL/L (20-26); ABG Oxygen Saturation 87.5 % (95-100); ABG PCO2 44.8 MM HG (35-48); ABG PH 7.418 (7.35-7.45); ABG PO2 54.9 MM HG (80-95); ABG TCO2 24.9 MMOL/L (23-27); Allen Test Positive; Pt O2 Delivery Device BIPAP
[2020-09-17] MEDS: SODIUM CHLOR 0.45% KCL 20 MEQ 20 MEQ/1,000 ML BAG IV SCH ×2 (04:52→15:00)
[2020-09-17] MEDS ORDERED: LORazepam 2 MG/1 ML VIAL ONE (05:57)
[2020-09-17] MEDS: LORazepam 2 MG/1 ML VIAL IV PRN (06:00)
[2020-09-17 06:09] LABS: Basophils % 0.3 % (0.0-0.8); Hematocrit 44.3 VOL% (35.7-47.0); Hemoglobin 14.1 GM/DL (12.0-16.0); Immature Granulocytes % 1.7 %; Immature Granulocytes Absolute 0.12 #; Lymphocytes # 0.9 10*3/uL (1.4-4.0); Lymphocytes % 13.1 % (21.3-54.2); Mean Corpuscular HGB Conc 31.8 GM/DL (32-36); Mean Corpuscular Volume 77.3 FL (87-102); Mean Platelet Volume 10.3 FL (9.6-12.0); Neutrophils % 78.9 % (38.7-73.9); Platelet Count 229 T/CUMM (130-400); Red Blood Count 5.73 MC/CUMM (3.8-5.5); Red Cell Distribution Width 16.2 % (9.3-17.3); White Blood Count 6.9 T/CUMM (4-12)
[2020-09-17 06:20] LABS: Albumin 2.1 G/DL (3.4-5.0); Bilirubin,Total 0.5 MG/DL (0.20-1.00); Calcium 8.5 MG/DL (8.5-10.1); Osmolality,Calculated 282.5 MOS/KG (273-304); Potassium 4.3 MMOL/L (3.5-5.1)
[2020-09-17 06:28] LABS: Hypochromasia 1+
[2020-09-17 06:29] LABS: Microcytosis 1+; Platelet Estimate Normal
[2020-09-17] MEDS: CHOLECALCIFEROL 1,000 UNIT TABLET PO SCH ×2 (08:27→11:51)
[2020-09-17] MEDS: ASCORBIC ACID 500 MG TABLET PO SCH ×3 (08:27→20:32)
[2020-09-17] MEDS: ENOXAPARIN 60 MG/0.6 ML SYRINGE SUBCUT SCH ×2 (08:28→20:32)
[2020-09-17] MEDS: ZINC GLUCONATE 50 MG TABLET PO SCH ×2 (08:28→11:51)
[2020-09-17] MEDS: CETIRIZINE 10 MG TABLET PO SCH ×2 (08:28→11:51)
[2020-09-17] MEDS: FAMOTIDINE 20 MG TABLET PO SCH ×3 (08:28→20:32)
[2020-09-17] MEDS: REMDESIVIR 100 MG in SODIUM CHLORIDE 0.9% 100 ML IV SCH (10:30)
[2020-09-17] MEDS: AZITHROMYCIN INJ 500 MG in SODIUM CHLORIDE 0.9% 250 ML IV SCH (18:53)
[2020-09-17] MEDS: ALPRAZolam 0.5 MG TABLET PO PRN (20:32)
[2020-09-17] MEDS: MELATONIN 3 MG TABLET PO SCH (20:32)
[2020-09-18] MEDS: DEXMEDETOMIDINE 400 MCG in SODIUM CHLORIDE 0.9% 96 ML IV PRN ×4 (00:50→18:00)
[2020-09-18] MEDS: methylPREDNISolone SOD SUC 40 MG/1 ML VIAL IV SCH ×4 (04:02→21:22)
[2020-09-18] MEDS: ALBUTEROL INHALER 18 GM INH SCH ×6 (04:02→23:41)
[2020-09-18] MEDS: SODIUM CHLOR 0.45% KCL 20 MEQ 20 MEQ/1,000 ML BAG IV SCH ×2 (04:08→17:55)
[2020-09-18 04:29] LABS: Allen Test Positive; Pt O2 Delivery Device BIPAP
[2020-09-18 04:31] LABS: ABG Base Excess 1.1 MMOL/L (-2.5-2.5); ABG HCO3 25.2 MMOL/L (20-26); ABG Oxygen Saturation 90.1 % (95-100); ABG PCO2 37.2 MM HG (35-48); ABG PH 7.435 (7.35-7.45); ABG PO2 58.1 MM HG (80-95); ABG TCO2 21.3 MMOL/L (23-27)
[2020-09-18 05:57] LABS: Basophils % 0.1 % (0.0-0.8); Hematocrit 46.4 VOL% (35.7-47.0); Hemoglobin 14.7 GM/DL (12.0-16.0); Immature Granulocytes % 2.2 %; Immature Granulocytes Absolute 0.16 #; Lymphocytes # 0.7 10*3/uL (1.4-4.0); Lymphocytes % 9.7 % (21.3-54.2); Mean Corpuscular HGB Conc 31.7 GM/DL (32-36); Mean Corpuscular Volume 77.5 FL (87-102); Mean Platelet Volume 10.4 FL (9.6-12.0); Monocytes % 5.6 % (1.7-12.7); Neutrophils % 82.4 % (38.7-73.9); Platelet Count 247 T/CUMM (130-400); Red Blood Count 5.99 MC/CUMM (3.8-5.5); Red Cell Distribution Width 16.1 % (9.3-17.3); White Blood Count 7.3 T/CUMM (4-12)
[2020-09-18 06:32] LABS: Albumin 1.9 G/DL (3.4-5.0); Bilirubin,Total 0.4 MG/DL (0.20-1.00); Calcium 8.3 MG/DL (8.5-10.1); Osmolality,Calculated 285.4 MOS/KG (273-304); Potassium 4.2 MMOL/L (3.5-5.1); Total Protein 6.6 G/DL (6.4-8.2)
[2020-09-18] MEDS: CETIRIZINE 10 MG TABLET PO SCH (08:03)
[2020-09-18] MEDS: ASCORBIC ACID 500 MG TABLET PO SCH ×2 (08:03→20:07)
[2020-09-18] MEDS: ENOXAPARIN 60 MG/0.6 ML SYRINGE SUBCUT SCH ×2 (08:03→20:07)
[2020-09-18] MEDS: FAMOTIDINE 20 MG TABLET PO SCH ×2 (08:03→20:07)
[2020-09-18] MEDS: ZINC GLUCONATE 50 MG TABLET PO SCH (08:03)
[2020-09-18] MEDS: CHOLECALCIFEROL 1,000 UNIT TABLET PO SCH (08:03)
[2020-09-18] MEDS: VANCOMYCIN INJ 1,500 MG in SODIUM CHLORIDE 0.9% 500 ML IV SCH (10:25)
[2020-09-18] MEDS: CEFEPIME 1,000 MG in SODIUM CHLORIDE 0.9% 100 ML IV SCH ×2 (10:30→23:41)
[2020-09-18] MEDS ORDERED: FUROSEMIDE 40 MG/4 ML VIAL IV ONE (11:07)
[2020-09-18] MEDS: ALPRAZolam 0.5 MG TABLET PO PRN (19:42)
[2020-09-18] MEDS: LORazepam 2 MG/1 ML VIAL IV PRN ×2 (19:42→23:09)
[2020-09-18] MEDS: MELATONIN 3 MG TABLET PO SCH (20:07)
[2020-09-18] MEDS ORDERED: MORPHINE 2 MG/1 ML SYRINGE IV ONE (23:54)
[2020-09-18] MEDS ORDERED: MORPHINE 2 MG/1 ML SYRINGE ONE (23:56)
[2020-09-19] MEDS: VANCOMYCIN INJ 1,500 MG in SODIUM CHLORIDE 0.9% 500 ML IV SCH ×3 (00:03→23:16)
[2020-09-19] MEDS ORDERED: MORPHINE 2 MG/1 ML SYRINGE IV ONE (00:58)
[2020-09-19] MEDS ORDERED: HALOPERIDOL 5 MG/ML AMP IM ONE (01:32)
[2020-09-19] MEDS: DEXMEDETOMIDINE 400 MCG in SODIUM CHLORIDE 0.9% 96 ML IV PRN ×4 (02:25→23:18)
[2020-09-19] MEDS: ALBUTEROL INHALER 18 GM INH SCH ×6 (04:11→22:23)
[2020-09-19] MEDS: methylPREDNISolone SOD SUC 40 MG/1 ML VIAL IV SCH ×4 (04:11→20:59)
[2020-09-19 04:55] LABS: ABG Base Excess 0.9 MMOL/L (-2.5-2.5); ABG Oxygen Saturation 89.9 % (95-100); ABG PCO2 37.4 MM HG (35-48); ABG PH 7.431 (7.35-7.45); ABG PO2 57.4 MM HG (80-95); ABG TCO2 21.4 MMOL/L (23-27); Allen Test Positive; Pt O2 Delivery Device BIPAP
[2020-09-19 05:20] LABS: Basophils % 0.3 % (0.0-0.8); Hematocrit 44.4 VOL% (35.7-47.0); Hemoglobin 14.1 GM/DL (12.0-16.0); Immature Granulocytes % 2.7 %; Immature Granulocytes Absolute 0.32 #; Lymphocytes # 0.6 10*3/uL (1.4-4.0); Mean Corpuscular HGB Conc 31.8 GM/DL (32-36); Mean Corpuscular Volume 77.5 FL (87-102); Mean Platelet Volume 10.4 FL (9.6-12.0); Monocytes % 3.2 % (1.7-12.7); Neutrophils % 88.8 % (38.7-73.9); Platelet Count 217 T/CUMM (130-400); Red Blood Count 5.73 MC/CUMM (3.8-5.5); Red Cell Distribution Width 16.1 % (9.3-17.3); White Blood Count 11.7 T/CUMM (4-12)
[2020-09-19 05:44] LABS: Hypochromasia 1+; Lymphocytes 2 % (20-55); Microcytosis 1+; Platelet Estimate Adequate; Segmented Neutrophils 94 % (50-85); Total Cells Counted 100
[2020-09-19] MEDS ORDERED: LORazepam 1 MG TABLET PO ONE (08:10)
[2020-09-19] MEDS: ASCORBIC ACID 500 MG TABLET PO SCH ×2 (08:38→20:58)
[2020-09-19] MEDS: CETIRIZINE 10 MG TABLET PO SCH (08:38)
[2020-09-19] MEDS: ZINC GLUCONATE 50 MG TABLET PO SCH (08:38)
[2020-09-19] MEDS: FAMOTIDINE 20 MG TABLET PO SCH ×2 (08:38→20:58)
[2020-09-19] MEDS: CHOLECALCIFEROL 1,000 UNIT TABLET PO SCH (08:38)
[2020-09-19] MEDS: ENOXAPARIN 60 MG/0.6 ML SYRINGE SUBCUT SCH ×2 (08:39→20:58)
[2020-09-19] MEDS ORDERED: OLANZapine 10 MG VIAL IM ONE (09:18)
[2020-09-19] MEDS ORDERED: MIDAZOLAM 2 MG/2 ML VIAL IV ONE (10:30)
[2020-09-19] MEDS ORDERED: MIDAZOLAM 2 MG/2 ML VIAL ONE (10:31)
[2020-09-19] MEDS: CEFEPIME 1,000 MG in SODIUM CHLORIDE 0.9% 100 ML IV SCH ×2 (13:09→22:18)
[2020-09-19] MEDS: SODIUM CHLOR 0.45% KCL 20 MEQ 20 MEQ/1,000 ML BAG IV SCH ×2 (18:25→21:48)
[2020-09-19] MEDS ORDERED: hydrALAZINE 20 MG/1 ML VIAL IV PRN (20:27)
[2020-09-19] MEDS: MELATONIN 3 MG TABLET PO SCH (20:58)
[2020-09-19] MEDS: LORazepam 2 MG/1 ML VIAL IV PRN ×2 (21:15→23:18)
[2020-09-19] MEDS: ALPRAZolam 0.5 MG TABLET PO PRN (21:48)
[2020-09-20] MEDS: LORazepam 2 MG/1 ML VIAL IV PRN ×5 (01:20→23:30)
[2020-09-20] MEDS: OLANZapine 10 MG VIAL IM PRN ×2 (02:16→12:31)
[2020-09-20] MEDS: ALBUTEROL INHALER 18 GM INH SCH ×6 (03:30→23:42)
[2020-09-20] MEDS: methylPREDNISolone SOD SUC 40 MG/1 ML VIAL IV SCH ×4 (04:09→20:30)
[2020-09-20] MEDS: DEXMEDETOMIDINE 400 MCG in SODIUM CHLORIDE 0.9% 96 ML IV PRN ×4 (04:09→21:25)
[2020-09-20 04:50] LABS: ABG Base Excess -0.4 MMOL/L (-2.5-2.5); ABG HCO3 24.7 MMOL/L (20-26); ABG Oxygen Saturation 89.8 % (95-100); ABG PCO2 42.6 MM HG (35-48); ABG PH 7.382 (7.35-7.45); ABG PO2 58.8 MM HG (80-95); ABG TCO2 26.1 MMOL/L (23-27); Allen Test Positive; Pt O2 Delivery Device BIPAP
[2020-09-20 05:28] LABS: Basophils % 0.1 % (0.0-0.8); Hematocrit 42.3 VOL% (35.7-47.0); Hemoglobin 12.9 GM/DL (12.0-16.0); Immature Granulocytes Absolute 0.22 #; Lymphocytes # 0.7 10*3/uL (1.4-4.0); Lymphocytes % 6.1 % (21.3-54.2); Mean Corpuscular HGB Conc 30.5 GM/DL (32-36); Mean Corpuscular Volume 78.9 FL (87-102); Mean Platelet Volume 10.3 FL (9.6-12.0); Monocytes % 2.7 % (1.7-12.7); Neutrophils % 89.1 % (38.7-73.9); Platelet Count 166 T/CUMM (130-400); Red Blood Count 5.36 MC/CUMM (3.8-5.5); Red Cell Distribution Width 15.9 % (9.3-17.3); White Blood Count 10.8 T/CUMM (4-12)
[2020-09-20 05:51] LABS: Lymphocytes 6 % (20-55); Microcytosis Slight; Platelet Estimate Normal; Segmented Neutrophils 90 % (50-85); Total Cells Counted 100
[2020-09-20 05:59] LABS: Osmolality,Calculated 298.7 MOS/KG (273-304)
[2020-09-20] MEDS: ENOXAPARIN 60 MG/0.6 ML SYRINGE SUBCUT SCH ×2 (08:23→20:17)
[2020-09-20] MEDS: CHOLECALCIFEROL 1,000 UNIT TABLET PO SCH (08:23)
[2020-09-20] MEDS: ZINC GLUCONATE 50 MG TABLET PO SCH (08:23)
[2020-09-20] MEDS: ASCORBIC ACID 500 MG TABLET PO SCH ×2 (08:24→20:17)
[2020-09-20] MEDS: FAMOTIDINE 20 MG TABLET PO SCH ×2 (08:24→20:17)
[2020-09-20] MEDS: CETIRIZINE 10 MG TABLET PO SCH (08:25)
[2020-09-20] MEDS: CEFEPIME 1,000 MG in SODIUM CHLORIDE 0.9% 100 ML IV SCH ×2 (09:59→23:25)
[2020-09-20] MEDS: hydrALAZINE 20 MG/1 ML VIAL IV PRN (10:03)
[2020-09-20] MEDS: VANCOMYCIN INJ 1,500 MG in SODIUM CHLORIDE 0.9% 500 ML IV SCH ×2 (10:31→23:57)
[2020-09-20] MEDS: ALPRAZolam 0.5 MG TABLET PO PRN ×2 (10:41→21:10)
[2020-09-20] MEDS ORDERED: MORPHINE 2 MG/1 ML SYRINGE IV ONE (11:16)
[2020-09-20] MEDS ORDERED: amLODIPine 5 MG TABLET PO SCH (11:30)
[2020-09-20] MEDS: ALBUMIN 25% 12.5 GM/50 ML VIAL IV SCH ×2 (11:31→17:33)
[2020-09-20] MEDS ORDERED: METOPROLOL TARTRATE 5 MG/5 ML VIAL IV ONE (12:35)
[2020-09-20] MEDS ORDERED: FUROSEMIDE 40 MG/4 ML VIAL IV ONE (12:48)
[2020-09-20] MEDS: SODIUM CHLOR 0.45% KCL 20 MEQ 20 MEQ/1,000 ML BAG IV SCH (14:00)
[2020-09-20] MEDS ORDERED: GLUCAGON 1 MG VIAL IM PRN (14:03)
[2020-09-20] MEDS ORDERED: DEXTROSE 50% 25 GM/50 ML VIAL IV PRN (14:03)
[2020-09-20] MEDS ORDERED: amLODIPine 5 MG TABLET PO ONE (16:03)
[2020-09-20] MEDS: FUROSEMIDE 40 MG/4 ML VIAL IV SCH (16:31)
[2020-09-20] MEDS: INSULIN REGULAR 100 UNIT/ML SUBCUT SCH ×2 (17:12→23:42)
[2020-09-20] MEDS: MELATONIN 3 MG TABLET PO SCH (20:17)
[2020-09-21] MEDS: MORPHINE 2 MG/1 ML SYRINGE IV PRN ×2 (01:04→05:08)
[2020-09-21 01:47] LABS: ABG Base Excess 4.2 MMOL/L (-2.5-2.5); ABG HCO3 27.8 MMOL/L (20-26); ABG Oxygen Saturation 83.4 % (95-100); ABG PCO2 42.4 MM HG (35-48); ABG PO2 47.1 MM HG (80-95); ABG TCO2 25.2 MMOL/L (23-27); Allen Test Positive; Pt O2 Delivery Device BIPAP
[2020-09-21] MEDS ORDERED: VECURONIUM 10 MG VIAL IV ONE ×2 (01:55→06:57)
[2020-09-21] MEDS ORDERED: ETOMIDATE 20 MG/10 ML VIAL IV ONE ×3 (01:55→06:56)
[2020-09-21] MEDS: LORazepam 2 MG/1 ML VIAL IV PRN ×3 (02:20→06:34)
[2020-09-21] MEDS: ALBUMIN 25% 12.5 GM/50 ML VIAL IV SCH ×3 (02:31→17:31)
[2020-09-21] MEDS: ALPRAZolam 0.5 MG TABLET PO PRN (02:46)
[2020-09-21] MEDS: ALBUTEROL INHALER 18 GM INH SCH ×5 (02:57→20:14)
[2020-09-21] MEDS: methylPREDNISolone SOD SUC 40 MG/1 ML VIAL IV SCH ×4 (03:27→20:38)
[2020-09-21] MEDS: DEXMEDETOMIDINE 400 MCG in SODIUM CHLORIDE 0.9% 96 ML IV PRN (03:39)
[2020-09-21 03:44] LABS: Basophils % 0.3 % (0.0-0.8); Hematocrit 43.3 VOL% (35.7-47.0); Hemoglobin 13.3 GM/DL (12.0-16.0); Immature Granulocytes % 3.5 %; Immature Granulocytes Absolute 0.43 #; Lymphocytes # 0.5 10*3/uL (1.4-4.0); Lymphocytes % 4.2 % (21.3-54.2); Mean Corpuscular HGB Conc 30.7 GM/DL (32-36); Mean Corpuscular Volume 79.2 FL (87-102); Mean Platelet Volume 10.3 FL (9.6-12.0); Monocytes % 2.6 % (1.7-12.7); Neutrophils % 89.4 % (38.7-73.9); Platelet Count 157 T/CUMM (130-400); Red Blood Count 5.47 MC/CUMM (3.8-5.5); White Blood Count 12.4 T/CUMM (4-12)
[2020-09-21 04:15] LABS: Albumin 2.2 G/DL (3.4-5.0); Bilirubin,Total 0.5 MG/DL (0.20-1.00); Calcium 8.5 MG/DL (8.5-10.1); Osmolality,Calculated 298.4 MOS/KG (273-304); Potassium 3.7 MMOL/L (3.5-5.1); Total Protein 6.9 G/DL (6.4-8.2)
[2020-09-21] MEDS: INSULIN REGULAR 100 UNIT/ML SUBCUT SCH ×3 (05:04→17:16)
[2020-09-21 05:28] LABS: Anisocytosis 1+; Band Neutrophils 1 % (0-10); Lymphocytes 2 % (20-55); Platelet Estimate Normal; Segmented Neutrophils 94 % (50-85); Total Cells Counted 100
[2020-09-21] MEDS: ENOXAPARIN 60 MG/0.6 ML SYRINGE SUBCUT SCH ×2 (08:06→20:13)
[2020-09-21] MEDS: CHOLECALCIFEROL 1,000 UNIT TABLET PO SCH (08:06)
[2020-09-21] MEDS: CETIRIZINE 10 MG TABLET PO SCH (08:06)
[2020-09-21] MEDS: ASCORBIC ACID 500 MG TABLET PO SCH ×2 (08:06→20:13)
[2020-09-21] MEDS: FUROSEMIDE 40 MG/4 ML VIAL IV SCH ×2 (08:06→15:50)
[2020-09-21] MEDS: FAMOTIDINE 20 MG TABLET PO SCH ×2 (08:06→20:13)
[2020-09-21] MEDS: ZINC GLUCONATE 50 MG TABLET PO SCH (08:07)
[2020-09-21 08:24] LABS: ABG Base Excess 4.2 MMOL/L (-2.5-2.5); ABG PCO2 62.3 MM HG (35-48); ABG PH 7.328 (7.35-7.45); ABG PO2 48.3 MM HG (80-95); ABG TCO2 33.9 MMOL/L (23-27)
[2020-09-21] MEDS ORDERED: amLODIPine 10 MG TABLET PO SCH (09:00)
[2020-09-21] MEDS: fentaNYL INJ 1,250 MCG in SODIUM CHLORIDE 0.9% 225 ML IV PRN ×2 (10:27→19:59)
[2020-09-21] MEDS: CEFEPIME 1,000 MG in SODIUM CHLORIDE 0.9% 100 ML IV SCH ×2 (10:47→23:40)
[2020-09-21 12:08] LABS: ABG Base Excess 1.4 MMOL/L (-2.5-2.5); ABG Oxygen Saturation 94.8 % (95-100); ABG PCO2 67.6 MM HG (35-48); ABG PH 7.265 (7.35-7.45); ABG PO2 81.5 MM HG (80-95); ABG TCO2 32.1 MMOL/L (23-27)
[2020-09-21] MEDS: VANCOMYCIN INJ 1,500 MG in SODIUM CHLORIDE 0.9% 500 ML IV SCH (13:25)
[2020-09-21] MEDS: ROCURONIUM 500 MG in SODIUM CHLORIDE 0.9% 500 ML IV PRN (17:05)
[2020-09-21] MEDS: MELATONIN 3 MG TABLET PO SCH (20:13)
[2020-09-22] MEDS: ALBUTEROL INHALER 18 GM INH SCH ×7 (00:10→23:47)
[2020-09-22] MEDS: INSULIN REGULAR 100 UNIT/ML SUBCUT SCH ×5 (00:13→23:45)
[2020-09-22] MEDS: VANCOMYCIN INJ 1,500 MG in SODIUM CHLORIDE 0.9% 500 ML IV SCH (00:19)
[2020-09-22] MEDS: ROCURONIUM 500 MG in SODIUM CHLORIDE 0.9% 500 ML IV PRN ×2 (02:28→16:53)
[2020-09-22] MEDS: methylPREDNISolone SOD SUC 40 MG/1 ML VIAL IV SCH ×4 (03:01→20:42)
[2020-09-22] MEDS: ALBUMIN 25% 12.5 GM/50 ML VIAL IV SCH (03:01)
[2020-09-22 03:20] LABS: Albumin 2.3 G/DL (3.4-5.0); Bilirubin,Total 0.9 MG/DL (0.20-1.00); Osmolality,Calculated 305.6 MOS/KG (273-304); Potassium 4.4 MMOL/L (3.5-5.1); Total Protein 6.1 G/DL (6.4-8.2)
[2020-09-22 03:25] LABS: Basophils % 0.2 % (0.0-0.8); Hematocrit 37.6 VOL% (35.7-47.0); Immature Granulocytes % 2.4 %; Immature Granulocytes Absolute 0.19 #; Lymphocytes # 0.4 10*3/uL (1.4-4.0); Lymphocytes % 5.3 % (21.3-54.2); Mean Corpuscular Volume 83.6 FL (87-102); Mean Platelet Volume 10.5 FL (9.6-12.0); Monocytes % 3.5 % (1.7-12.7); Neutrophils % 88.6 % (38.7-73.9); Platelet Count 121 T/CUMM (130-400); Red Cell Distribution Width 16.7 % (9.3-17.3); White Blood Count 8.1 T/CUMM (4-12)
[2020-09-22 03:26] LABS: Hemoglobin 10.9 GM/DL (12.0-16.0)
[2020-09-22 04:53] LABS: ABG Base Excess 0.2 MMOL/L (-2.5-2.5); ABG HCO3 24.5 MMOL/L (20-26); ABG Oxygen Saturation 92.6 % (95-100); ABG PH 7.229 (7.35-7.45); ABG PO2 64.7 MM HG (80-95); ABG TCO2 27.4 MMOL/L (23-27); Allen Test Positive; Pt O2 Delivery Device Ventilator
[2020-09-22 04:55] LABS: ABG PCO2 71.1 MM HG (35-48)
[2020-09-22] MEDS: fentaNYL INJ 1,250 MCG in SODIUM CHLORIDE 0.9% 225 ML IV PRN ×2 (07:24→18:45)
[2020-09-22] MEDS: CETIRIZINE 10 MG TABLET PO SCH (09:28)
[2020-09-22] MEDS: FAMOTIDINE 20 MG TABLET PO SCH ×2 (09:28→20:03)
[2020-09-22] MEDS: ASCORBIC ACID 500 MG TABLET PO SCH ×2 (09:28→20:03)
[2020-09-22] MEDS: ZINC GLUCONATE 50 MG TABLET PO SCH (09:28)
[2020-09-22] MEDS: ENOXAPARIN 60 MG/0.6 ML SYRINGE SUBCUT SCH ×2 (09:28→20:02)
[2020-09-22] MEDS: CHOLECALCIFEROL 1,000 UNIT TABLET PO SCH (09:29)
[2020-09-22 09:40] LABS: Allen Test Positive; Pt O2 Delivery Device Ventilator
[2020-09-22 09:41] LABS: ABG Base Excess -0.7 MMOL/L (-2.5-2.5); ABG HCO3 23.9 MMOL/L (20-26); ABG PCO2 59.2 MM HG (35-48); ABG PH 7.272 (7.35-7.45)
[2020-09-22] MEDS: CEFEPIME 1,000 MG in SODIUM CHLORIDE 0.9% 100 ML IV SCH ×2 (12:27→23:44)
[2020-09-22] MEDS: POLYETHYLENE GLYCOL POWDER 17 GM PACK PO SCH (15:51)
[2020-09-22] MEDS: FUROSEMIDE 40 MG/4 ML VIAL IV SCH (16:06)
[2020-09-22] MEDS: METOCLOPRAMIDE 10 MG/2 ML VIAL IV SCH ×2 (16:55→23:46)
[2020-09-22] MEDS: MELATONIN 3 MG TABLET PO SCH (20:03)
[2020-09-23] MEDS: methylPREDNISolone SOD SUC 40 MG/1 ML VIAL IV SCH ×2 (04:10→09:08)
[2020-09-23] MEDS: ALBUTEROL INHALER 18 GM INH SCH ×5 (04:10→18:35)
[2020-09-23 04:15] LABS: ABG Base Excess -2.1 MMOL/L (-2.5-2.5); ABG HCO3 22.7 MMOL/L (20-26); ABG PCO2 58.7 MM HG (35-48); ABG PH 7.254 (7.35-7.45); Allen Test Positive; Pt O2 Delivery Device Ventilator
[2020-09-23 04:31] LABS: Basophils % 0.1 % (0.0-0.8); Hematocrit 33.5 VOL% (35.7-47.0); Immature Granulocytes % 4.6 %; Immature Granulocytes Absolute 0.36 #; Lymphocytes # 0.4 10*3/uL (1.4-4.0); Lymphocytes % 5.6 % (21.3-54.2); Mean Corpuscular HGB Conc 29.9 GM/DL (32-36); Mean Corpuscular Volume 82.3 FL (87-102); Mean Platelet Volume 10.1 FL (9.6-12.0); NRBC # 0.02 10*3/uL; Neutrophils % 84.7 % (38.7-73.9); Platelet Count 122 T/CUMM (130-400); Red Blood Count 4.07 MC/CUMM (3.8-5.5); Red Cell Distribution Width 16.8 % (9.3-17.3); White Blood Count 7.8 T/CUMM (4-12)
[2020-09-23 04:40] LABS: Calcium 8.1 MG/DL (8.5-10.1); Osmolality,Calculated 305.1 MOS/KG (273-304); Potassium 4.8 MMOL/L (3.5-5.1)
[2020-09-23 04:50] LABS: Hypochromasia 1+; Lymphocytes 7 % (20-55); Microcytosis 1+; Segmented Neutrophils 89 % (50-85); Total Cells Counted 100
[2020-09-23 04:51] LABS: Platelet Estimate Adequate
[2020-09-23] MEDS: fentaNYL INJ 1,250 MCG in SODIUM CHLORIDE 0.9% 225 ML IV PRN ×2 (05:25→16:20)
[2020-09-23] MEDS: INSULIN REGULAR 100 UNIT/ML SUBCUT SCH ×3 (06:03→18:34)
[2020-09-23] MEDS: FUROSEMIDE 40 MG/4 ML VIAL IV SCH (08:38)
[2020-09-23] MEDS: ENOXAPARIN 60 MG/0.6 ML SYRINGE SUBCUT SCH (09:08)
[2020-09-23] MEDS: CETIRIZINE 10 MG TABLET PO SCH (09:09)
[2020-09-23] MEDS: CALCIUM CARBONATE CHEW 500 MG TABLET PO SCH ×3 (09:09→20:02)
[2020-09-23] MEDS: INSULIN GLARGINE 100 UNIT/ML SUBCUT SCH (09:09)
[2020-09-23] MEDS: CHOLECALCIFEROL 1,000 UNIT TABLET PO SCH (09:09)
[2020-09-23] MEDS: POLYETHYLENE GLYCOL POWDER 17 GM PACK PO SCH (09:09)
[2020-09-23] MEDS: FAMOTIDINE 20 MG TABLET PO SCH ×2 (09:09→20:02)
[2020-09-23] MEDS: ZINC GLUCONATE 50 MG TABLET PO SCH (09:09)
[2020-09-23] MEDS: ASCORBIC ACID 500 MG TABLET PO SCH ×2 (09:09→20:02)
[2020-09-23] MEDS: LACTULOSE 20 GM/30 ML UDCUP PO PRN (11:35)
[2020-09-23] MEDS: hydrALAZINE 20 MG/1 ML VIAL IV PRN (11:36)
[2020-09-23] MEDS ORDERED: METOPROLOL TARTRATE 5 MG/5 ML VIAL IV ONE (11:57)
[2020-09-23] MEDS: CEFEPIME 1,000 MG in SODIUM CHLORIDE 0.9% 100 ML IV SCH (12:54)
[2020-09-23] MEDS ORDERED: INSULIN GLARGINE 100 UNIT/ML SUBCUT SCH (12:58)
[2020-09-23 14:27] LABS: ABG Base Excess -5.5 MMOL/L (-2.5-2.5); ABG HCO3 19.9 MMOL/L (20-26); ABG Oxygen Saturation 96.2 % (95-100); ABG PCO2 62.6 MM HG (35-48); ABG PO2 87.7 MM HG (80-95); ABG TCO2 22.1 MMOL/L (23-27); Allen Test Positive; Pt O2 Delivery Device Ventilator
[2020-09-23] MEDS: methylPREDNISolone SOD SUC 125 MG/2 ML VIAL IV SCH ×2 (14:47→21:53)
[2020-09-24] MEDS: ROCURONIUM 500 MG in SODIUM CHLORIDE 0.9% 500 ML IV PRN (00:07)
[2020-09-24] MEDS: CEFEPIME 1,000 MG in SODIUM CHLORIDE 0.9% 100 ML IV SCH ×3 (00:22→23:56)
[2020-09-24] MEDS: INSULIN REGULAR 100 UNIT/ML SUBCUT SCH ×5 (00:23→23:59)
[2020-09-24] MEDS: ALBUTEROL INHALER 18 GM INH SCH ×7 (00:24→23:57)
[2020-09-24 04:04] LABS: ABG Base Excess -4.1 MMOL/L (-2.5-2.5); ABG HCO3 21.1 MMOL/L (20-26); ABG PCO2 58.2 MM HG (35-48); ABG PH 7.229 (7.35-7.45); ABG TCO2 22.5 MMOL/L (23-27)
[2020-09-24] MEDS: fentaNYL INJ 1,250 MCG in SODIUM CHLORIDE 0.9% 225 ML IV PRN ×2 (04:17→13:52)
[2020-09-24 04:34] LABS: Albumin 2.2 G/DL (3.4-5.0); Bilirubin,Total 0.4 MG/DL (0.20-1.00); Ferritin 322.2 ng/ml (8-252); Osmolality,Calculated 297.8 MOS/KG (273-304); Potassium 5.3 MMOL/L (3.5-5.1); Total Protein 5.6 G/DL (6.4-8.2)
[2020-09-24 04:35] LABS: Basophils % 0.2 % (0.0-0.8); Hematocrit 32.2 VOL% (35.7-47.0); Hemoglobin 9.5 GM/DL (12.0-16.0); Immature Granulocytes % 4.2 %; Immature Granulocytes Absolute 0.45 #; Lymphocytes # 0.5 10*3/uL (1.4-4.0); Mean Corpuscular HGB Conc 29.5 GM/DL (32-36); Mean Corpuscular Volume 83.2 FL (87-102); Mean Platelet Volume 10.5 FL (9.6-12.0); Monocytes % 5.8 % (1.7-12.7); NRBC # 0.04 10*3/uL; Neutrophils % 84.8 % (38.7-73.9); Platelet Count 127 T/CUMM (130-400); Red Blood Count 3.87 MC/CUMM (3.8-5.5); Red Cell Distribution Width 17.3 % (9.3-17.3); White Blood Count 10.6 T/CUMM (4-12)
[2020-09-24 05:20] LABS: Hypochromasia 1+; Microcytosis 1+
[2020-09-24 05:21] LABS: Platelet Estimate Adequate
[2020-09-24] MEDS: methylPREDNISolone SOD SUC 125 MG/2 ML VIAL IV SCH (05:58)
[2020-09-24] MEDS: CALCIUM CARBONATE CHEW 500 MG TABLET PO SCH ×3 (08:36→20:18)
[2020-09-24] MEDS: ZINC GLUCONATE 50 MG TABLET PO SCH (08:36)
[2020-09-24] MEDS: ASCORBIC ACID 500 MG TABLET PO SCH ×2 (08:37→20:18)
[2020-09-24] MEDS: ENOXAPARIN 60 MG/0.6 ML SYRINGE SUBCUT SCH (08:37)
[2020-09-24] MEDS: POLYETHYLENE GLYCOL POWDER 17 GM PACK PO SCH (08:37)
[2020-09-24] MEDS: INSULIN GLARGINE 100 UNIT/ML SUBCUT SCH (08:37)
[2020-09-24] MEDS: CETIRIZINE 10 MG TABLET PO SCH (08:37)
[2020-09-24] MEDS: CHOLECALCIFEROL 1,000 UNIT TABLET PO SCH (08:37)
[2020-09-24] MEDS: FAMOTIDINE 20 MG TABLET PO SCH ×2 (08:37→20:18)
[2020-09-24] MEDS: methylPREDNISolone SOD SUC 40 MG/1 ML VIAL IV SCH ×2 (11:23→17:41)
[2020-09-24] MEDS ORDERED: SODIUM POLYSTYRENE SULFATE 15 GM/60 ML BOTTLE PO STA ×2 (11:27→16:02)
[2020-09-24] MEDS ORDERED: amLODIPine 5 MG TABLET PO ONE (11:31)
[2020-09-24 12:48] LABS: ABG Base Excess -4.8 MMOL/L (-2.5-2.5); ABG HCO3 20.1 MMOL/L (20-26); ABG Oxygen Saturation 75.8 % (95-100); ABG PCO2 56.7 MM HG (35-48); ABG PH 7.226 (7.35-7.45); ABG PO2 42.9 MM HG (80-95); ABG TCO2 21.9 MMOL/L (23-27)
[2020-09-24 15:14] LABS: Calcium 7.9 MG/DL (8.5-10.1); Osmolality,Calculated 301.7 MOS/KG (273-304); Potassium 5.2 MMOL/L (3.5-5.1)
[2020-09-24] MEDS ORDERED: amLODIPine 5 MG TABLET PO SCH (16:00)
[2020-09-25] MEDS: fentaNYL INJ 1,250 MCG in SODIUM CHLORIDE 0.9% 225 ML IV PRN ×4 (00:12→22:37)
[2020-09-25] MEDS: methylPREDNISolone SOD SUC 40 MG/1 ML VIAL IV SCH ×4 (02:23→20:16)
[2020-09-25] MEDS: ALBUTEROL INHALER 18 GM INH SCH ×5 (02:23→18:08)
[2020-09-25 04:03] LABS: ABG Base Excess -5.5 MMOL/L (-2.5-2.5); ABG HCO3 19.9 MMOL/L (20-26); ABG Oxygen Saturation 96.9 % (95-100); ABG PCO2 56.1 MM HG (35-48); ABG PO2 86.4 MM HG (80-95); ABG TCO2 21.1 MMOL/L (23-27)
[2020-09-25 04:26] LABS: Basophils % 0.1 % (0.0-0.8); Hematocrit 30.9 VOL% (35.7-47.0); Hemoglobin 9.3 GM/DL (12.0-16.0); Immature Granulocytes % 6.6 %; Lymphocytes # 0.6 10*3/uL (1.4-4.0); Lymphocytes % 5.3 % (21.3-54.2); Mean Corpuscular HGB Conc 30.1 GM/DL (32-36); Mean Corpuscular Volume 81.3 FL (87-102); Mean Platelet Volume 10.7 FL (9.6-12.0); Monocytes % 7.6 % (1.7-12.7); NRBC # 0.02 10*3/uL; Neutrophils % 80.4 % (38.7-73.9); Platelet Count 131 T/CUMM (130-400); Red Cell Distribution Width 17.2 % (9.3-17.3); White Blood Count 12.2 T/CUMM (4-12)
[2020-09-25 04:42] LABS: Calcium 7.6 MG/DL (8.5-10.1); Osmolality,Calculated 296.1 MOS/KG (273-304)
[2020-09-25] MEDS: INSULIN REGULAR 100 UNIT/ML SUBCUT SCH ×3 (05:06→17:22)
[2020-09-25 05:23] LABS: Hypochromasia 1+; Lymphocytes 9 % (20-55); Platelet Estimate Decreased; Promyelocytes 1 %; Segmented Neutrophils 85 % (50-85); Total Cells Counted 100
[2020-09-25] MEDS: ROCURONIUM 500 MG in SODIUM CHLORIDE 0.9% 500 ML IV PRN (07:37)
[2020-09-25] MEDS ORDERED: ASCORBIC ACID 500 MG/1 ML VIAL IV SCH (08:00)
[2020-09-25] MEDS: ZINC GLUCONATE 50 MG TABLET PO SCH (08:06)
[2020-09-25] MEDS: CETIRIZINE 10 MG TABLET PO SCH (08:06)
[2020-09-25] MEDS: amLODIPine 10 MG TABLET PO SCH (08:06)
[2020-09-25] MEDS: CHOLECALCIFEROL 1,000 UNIT TABLET PO SCH (08:06)
[2020-09-25] MEDS: POLYETHYLENE GLYCOL POWDER 17 GM PACK PO SCH (08:06)
[2020-09-25] MEDS: FAMOTIDINE 20 MG TABLET PO SCH ×2 (08:06→20:16)
[2020-09-25] MEDS: INSULIN GLARGINE 100 UNIT/ML SUBCUT SCH (08:07)
[2020-09-25] MEDS: CALCIUM CARBONATE CHEW 500 MG TABLET PO SCH ×3 (08:07→20:15)
[2020-09-25] MEDS: ENOXAPARIN 60 MG/0.6 ML SYRINGE SUBCUT SCH (08:07)
[2020-09-25] MEDS: CEFEPIME 1,000 MG in SODIUM CHLORIDE 0.9% 100 ML IV SCH (10:17)
[2020-09-25] MEDS: ASCORBIC ACID 500 MG TABLET PO SCH ×2 (10:17→20:16)
[2020-09-25] MEDS ORDERED: fentaNYL INJ 2,500 MCG in SODIUM CHLORIDE 0.9% 75 ML IV PRN (12:35)
[2020-09-25] MEDS: fentaNYL INJ 2,500 MCG in SODIUM CHLORIDE 0.9% 75 ML IV PRN ×2 (15:55→22:37)
[2020-09-25] MEDS: ROCURONIUM 1,000 MG in SODIUM CHLORIDE 0.9% 175 ML IV PRN (16:06)
[2020-09-25] MEDS: METOCLOPRAMIDE 10 MG/2 ML VIAL IV SCH (17:19)
[2020-09-26] MEDS: METOCLOPRAMIDE 10 MG/2 ML VIAL IV SCH ×4 (00:45→23:42)
[2020-09-26] MEDS: ALBUTEROL INHALER 18 GM INH SCH ×7 (00:47→23:29)
[2020-09-26] MEDS: INSULIN REGULAR 100 UNIT/ML SUBCUT SCH ×5 (01:05→23:41)
[2020-09-26] MEDS: methylPREDNISolone SOD SUC 40 MG/1 ML VIAL IV SCH ×4 (01:40→21:00)
[2020-09-26 04:45] LABS: Basophils % 0.2 % (0.0-0.8); Hematocrit 29.2 VOL% (35.7-47.0); Hemoglobin 8.9 GM/DL (12.0-16.0); Immature Granulocytes Absolute 0.61 #; Lymphocytes # 0.5 10*3/uL (1.4-4.0); Lymphocytes % 5.1 % (21.3-54.2); Mean Corpuscular HGB Conc 30.5 GM/DL (32-36); Mean Corpuscular Volume 78.9 FL (87-102); Mean Platelet Volume 10.7 FL (9.6-12.0); Monocytes % 7.3 % (1.7-12.7); Neutrophils % 81.4 % (38.7-73.9); Platelet Count 121 T/CUMM (130-400); White Blood Count 10.2 T/CUMM (4-12)
[2020-09-26 04:50] LABS: ABG Base Excess -7.5 MMOL/L (-2.5-2.5); ABG HCO3 19.5 MMOL/L (20-26); ABG PCO2 46.7 MM HG (35-48); ABG PH 7.239 (7.35-7.45); ABG PO2 169.7 MM HG (80-95); Allen Test Positive; Pt O2 Delivery Device Ventilator
[2020-09-26 05:04] LABS: Calcium 7.9 MG/DL (8.5-10.1); Ferritin 368.3 ng/ml (8-252); Osmolality,Calculated 305.1 MOS/KG (273-304); Potassium 5.3 MMOL/L (3.5-5.1)
[2020-09-26] MEDS: fentaNYL INJ 2,500 MCG in SODIUM CHLORIDE 0.9% 75 ML IV PRN ×3 (08:03→23:45)
[2020-09-26] MEDS: INSULIN GLARGINE 100 UNIT/ML SUBCUT SCH (08:05)
[2020-09-26] MEDS: CALCIUM CARBONATE CHEW 500 MG TABLET PO SCH ×3 (08:06→21:00)
[2020-09-26] MEDS: ENOXAPARIN 60 MG/0.6 ML SYRINGE SUBCUT SCH (08:06)
[2020-09-26] MEDS: FAMOTIDINE 20 MG TABLET PO SCH ×2 (08:06→21:00)
[2020-09-26] MEDS: ASCORBIC ACID 500 MG TABLET PO SCH ×2 (08:06→21:00)
[2020-09-26] MEDS: ZINC GLUCONATE 50 MG TABLET PO SCH (08:06)
[2020-09-26] MEDS: amLODIPine 10 MG TABLET PO SCH (08:06)
[2020-09-26] MEDS: POLYETHYLENE GLYCOL POWDER 17 GM PACK PO SCH (08:06)
[2020-09-26] MEDS: CETIRIZINE 10 MG TABLET PO SCH (08:06)
[2020-09-26] MEDS: CHOLECALCIFEROL 1,000 UNIT TABLET PO SCH (08:06)
[2020-09-26 08:19] LABS: Band Neutrophils 1 % (0-10); Lymphocytes 7 % (20-55); Metamyelocytes 3 %; Myelocytes 1 %; Platelet Estimate Adequate; Segmented Neutrophils 82 % (50-85); Total Cells Counted 100
[2020-09-26 08:20] LABS: Anisocytosis 1+
[2020-09-26] MEDS: CEFEPIME 1,000 MG in SODIUM CHLORIDE 0.9% 100 ML IV SCH ×2 (09:13→21:06)
[2020-09-26 11:03] LABS: HIV Antigen/Antibody Result Nonreactive (Nonreactive)
[2020-09-26] MEDS ORDERED: SODIUM POLYSTYRENE SULFATE 15 GM/60 ML BOTTLE PO ONE (14:13)
[2020-09-26] MEDS: ROCURONIUM 1,000 MG in SODIUM CHLORIDE 0.9% 175 ML IV PRN (14:19)
[2020-09-27] MEDS: methylPREDNISolone SOD SUC 40 MG/1 ML VIAL IV SCH ×4 (02:05→20:33)
[2020-09-27] MEDS: ALBUTEROL INHALER 18 GM INH SCH ×6 (03:40→23:30)
[2020-09-27 04:27] LABS: Basophils % 0.3 % (0.0-0.8); Hematocrit 29.5 VOL% (35.7-47.0); Hemoglobin 9.2 GM/DL (12.0-16.0); Immature Granulocytes % 6.4 %; Immature Granulocytes Absolute 0.71 #; Lymphocytes # 0.5 10*3/uL (1.4-4.0); Lymphocytes % 4.1 % (21.3-54.2); Mean Corpuscular HGB Conc 31.2 GM/DL (32-36); Mean Corpuscular Volume 79.9 FL (87-102); Mean Platelet Volume 10.8 FL (9.6-12.0); Monocytes % 8.9 % (1.7-12.7); Neutrophils % 80.3 % (38.7-73.9); Platelet Count 126 T/CUMM (130-400); Red Blood Count 3.69 MC/CUMM (3.8-5.5); Red Cell Distribution Width 17.2 % (9.3-17.3)
[2020-09-27 04:49] LABS: Calcium 7.6 MG/DL (8.5-10.1); Osmolality,Calculated 316.7 MOS/KG (273-304); Potassium 5.6 MMOL/L (3.5-5.1)
[2020-09-27 05:16] LABS: ABG Base Excess -10.3 MMOL/L (-2.5-2.5); ABG HCO3 16.2 MMOL/L (20-26); ABG Oxygen Saturation 92.2 % (95-100); ABG PCO2 56.2 MM HG (35-48); ABG PO2 72.1 MM HG (80-95); ABG TCO2 18.2 MMOL/L (23-27); Allen Test Positive; Pt O2 Delivery Device Ventilator
[2020-09-27 05:19] LABS: ABG PH 7.138 (7.35-7.45)
[2020-09-27] MEDS ORDERED: SODIUM BICARBONATE 50 MEQ/50 ML VIAL IV ONE (05:25)
[2020-09-27] MEDS: METOCLOPRAMIDE 10 MG/2 ML VIAL IV SCH ×3 (05:41→18:33)
[2020-09-27] MEDS: INSULIN REGULAR 100 UNIT/ML SUBCUT SCH ×3 (05:41→17:25)
[2020-09-27 06:41] LABS: Lymphocytes 11 % (20-55); Nucleated Red Blood Cells 1 (0-5); Segmented Neutrophils 85 % (50-85); Total Cells Counted 100
[2020-09-27 06:42] LABS: Microcytosis Slight; Platelet Estimate Adequate; Schistocytes Slight
[2020-09-27] MEDS: fentaNYL INJ 2,500 MCG in SODIUM CHLORIDE 0.9% 75 ML IV PRN ×3 (07:58→23:55)
[2020-09-27] MEDS: CEFEPIME 1,000 MG in SODIUM CHLORIDE 0.9% 100 ML IV SCH (08:42)
[2020-09-27] MEDS: CETIRIZINE 10 MG TABLET PO SCH (08:43)
[2020-09-27] MEDS: LACTULOSE 20 GM/30 ML UDCUP PO PRN (08:43)
[2020-09-27] MEDS: INSULIN GLARGINE 100 UNIT/ML SUBCUT SCH (08:43)
[2020-09-27] MEDS: POLYETHYLENE GLYCOL POWDER 17 GM PACK PO SCH (08:43)
[2020-09-27] MEDS: ENOXAPARIN 60 MG/0.6 ML SYRINGE SUBCUT SCH (08:44)
[2020-09-27] MEDS: amLODIPine 10 MG TABLET PO SCH (08:44)
[2020-09-27] MEDS: ASCORBIC ACID 500 MG TABLET PO SCH ×2 (08:44→20:33)
[2020-09-27] MEDS: ZINC GLUCONATE 50 MG TABLET PO SCH (08:44)
[2020-09-27] MEDS: CHOLECALCIFEROL 1,000 UNIT TABLET PO SCH (08:44)
[2020-09-27] MEDS: CALCIUM CARBONATE CHEW 500 MG TABLET PO SCH ×3 (08:51→20:33)
[2020-09-27] MEDS: FAMOTIDINE 20 MG TABLET PO SCH (08:51)
[2020-09-27] MEDS: SODIUM BICARBONATE 50 MEQ/50 ML VIAL IV SCH ×2 (08:51→20:33)
[2020-09-27] MEDS: ROCURONIUM 1,000 MG in SODIUM CHLORIDE 0.9% 175 ML IV PRN (15:07)
[2020-09-28] MEDS: METOCLOPRAMIDE 10 MG/2 ML VIAL IV SCH ×5 (01:00→23:22)
[2020-09-28] MEDS: INSULIN REGULAR 100 UNIT/ML SUBCUT SCH ×4 (01:12→18:12)
[2020-09-28] MEDS: methylPREDNISolone SOD SUC 40 MG/1 ML VIAL IV SCH ×2 (01:36→08:39)
[2020-09-28] MEDS: ALBUTEROL INHALER 18 GM INH SCH ×6 (02:57→23:23)
[2020-09-28 04:35] LABS: Basophils % 0.2 % (0.0-0.8); Hematocrit 27.2 VOL% (35.7-47.0); Hemoglobin 8.5 GM/DL (12.0-16.0); Immature Granulocytes % 5.2 %; Lymphocytes # 0.5 10*3/uL (1.4-4.0); Lymphocytes % 3.9 % (21.3-54.2); Mean Corpuscular HGB Conc 31.3 GM/DL (32-36); Mean Corpuscular Volume 78.8 FL (87-102); Mean Platelet Volume 10.8 FL (9.6-12.0); Monocytes % 8.2 % (1.7-12.7); Neutrophils % 82.5 % (38.7-73.9); Platelet Count 130 T/CUMM (130-400); Red Blood Count 3.45 MC/CUMM (3.8-5.5); Red Cell Distribution Width 17.2 % (9.3-17.3); White Blood Count 11.5 T/CUMM (4-12)
[2020-09-28 04:45] LABS: ABG Base Excess -9.7 MMOL/L (-2.5-2.5); ABG HCO3 16.7 MMOL/L (20-26); ABG PCO2 56.3 MM HG (35-48); ABG TCO2 18.4 MMOL/L (23-27)
[2020-09-28 04:59] LABS: Band Neutrophils 2 % (0-10); Hypochromasia 1+; Lymphocytes 4 % (20-55); Segmented Neutrophils 90 % (50-85); Total Cells Counted 100
[2020-09-28 05:00] LABS: Microcytosis 1+; Platelet Estimate Adequate
[2020-09-28 05:03] LABS: Calcium 7.6 MG/DL (8.5-10.1); Potassium 5.7 MMOL/L (3.5-5.1)
[2020-09-28] MEDS: fentaNYL INJ 2,500 MCG in SODIUM CHLORIDE 0.9% 75 ML IV PRN ×3 (08:06→18:49)
[2020-09-28] MEDS: ASCORBIC ACID 500 MG TABLET PO SCH ×2 (08:36→20:27)
[2020-09-28] MEDS: amLODIPine 10 MG TABLET PO SCH (08:36)
[2020-09-28] MEDS: ZINC GLUCONATE 50 MG TABLET PO SCH (08:36)
[2020-09-28] MEDS: CETIRIZINE 10 MG TABLET PO SCH (08:36)
[2020-09-28] MEDS: CHOLECALCIFEROL 1,000 UNIT TABLET PO SCH (08:36)
[2020-09-28] MEDS: SODIUM BICARBONATE 50 MEQ/50 ML VIAL IV SCH ×2 (08:37→20:27)
[2020-09-28] MEDS: CALCIUM CARBONATE CHEW 500 MG TABLET PO SCH ×3 (08:37→20:27)
[2020-09-28] MEDS: FAMOTIDINE 20 MG TABLET PO SCH (08:37)
[2020-09-28] MEDS: ENOXAPARIN 60 MG/0.6 ML SYRINGE SUBCUT SCH (08:39)
[2020-09-28] MEDS: INSULIN GLARGINE 100 UNIT/ML SUBCUT SCH (08:40)
[2020-09-28] MEDS: CEFEPIME 1,000 MG in SODIUM CHLORIDE 0.9% 100 ML IV SCH (08:41)
[2020-09-28] MEDS: POLYETHYLENE GLYCOL POWDER 17 GM PACK PO SCH (08:43)
[2020-09-28 09:08] LABS: ABG Base Excess -9.8 MMOL/L (-2.5-2.5); ABG HCO3 18.9 MMOL/L (20-26); ABG Oxygen Saturation 97.6 % (95-100); ABG PCO2 56.1 MM HG (35-48); ABG PO2 112.9 MM HG (80-95); ABG TCO2 20.6 MMOL/L (23-27)
[2020-09-28 09:10] LABS: ABG PH 7.145 (7.35-7.45)
[2020-09-28] MEDS: ROCURONIUM 1,000 MG in SODIUM CHLORIDE 0.9% 175 ML IV PRN (14:05)
[2020-09-28] MEDS ORDERED: FUROSEMIDE 100 MG/10 ML VIAL IV ONE (15:46)
[2020-09-28] MEDS: methylPREDNISolone SOD SUC 125 MG/2 ML VIAL IV SCH (20:33)
[2020-09-28 23:31] LABS: Fungitell Quantitative Value 133 pg/mL (<60 pg/mL)
[2020-09-29] MEDS: INSULIN REGULAR 100 UNIT/ML SUBCUT SCH ×4 (00:16→17:51)
[2020-09-29] MEDS: fentaNYL INJ 2,500 MCG in SODIUM CHLORIDE 0.9% 75 ML IV PRN ×4 (00:48→20:36)
[2020-09-29 02:56] LABS: ABG Base Excess -9.8 MMOL/L (-2.5-2.5); ABG HCO3 18.7 MMOL/L (20-26); ABG Oxygen Saturation 97.9 % (95-100); ABG PCO2 53.9 MM HG (35-48); ABG PO2 127.9 MM HG (80-95); ABG TCO2 20.3 MMOL/L (23-27)
[2020-09-29 03:04] LABS: ABG PH 7.157 (7.35-7.45)
[2020-09-29] MEDS: ALBUTEROL INHALER 18 GM INH SCH ×6 (03:15→23:49)
[2020-09-29 03:45] LABS: Basophils % 0.1 % (0.0-0.8); Hematocrit 27.1 VOL% (35.7-47.0); Hemoglobin 8.7 GM/DL (12.0-16.0); Immature Granulocytes % 5.4 %; Immature Granulocytes Absolute 0.86 #; Lymphocytes # 0.4 10*3/uL (1.4-4.0); Lymphocytes % 2.2 % (21.3-54.2); Mean Corpuscular HGB Conc 32.1 GM/DL (32-36); Mean Corpuscular Volume 77.9 FL (87-102); Mean Platelet Volume 10.6 FL (9.6-12.0); Monocytes % 5.5 % (1.7-12.7); NRBC # 0.02 10*3/uL; Neutrophils % 86.8 % (38.7-73.9); Platelet Count 140 T/CUMM (130-400); Red Blood Count 3.48 MC/CUMM (3.8-5.5); Red Cell Distribution Width 17.2 % (9.3-17.3); White Blood Count 15.8 T/CUMM (4-12)
[2020-09-29 04:14] LABS: Band Neutrophils 1 % (0-10); Hypochromasia 1+; Lymphocytes 5 % (20-55); Microcytosis 1+; Platelet Estimate Adequate; Segmented Neutrophils 88 % (50-85); Total Cells Counted 100
[2020-09-29] MEDS ORDERED: SODIUM BICARBONATE 50 MEQ/50 ML VIAL IV ONE ×2 (04:22)
[2020-09-29] MEDS: METOCLOPRAMIDE 10 MG/2 ML VIAL IV SCH ×3 (05:49→17:48)
[2020-09-29 05:52] LABS: Bilirubin,Total 0.6 MG/DL (0.20-1.00); Calcium 7.7 MG/DL (8.5-10.1); Osmolality,Calculated 319.4 MOS/KG (273-304); Potassium 5.7 MMOL/L (3.5-5.1); Total Protein 5.7 G/DL (6.4-8.2)
[2020-09-29] MEDS: methylPREDNISolone SOD SUC 125 MG/2 ML VIAL IV SCH ×2 (08:40→21:07)
[2020-09-29] MEDS: ENOXAPARIN 60 MG/0.6 ML SYRINGE SUBCUT SCH (08:55)
[2020-09-29] MEDS: INSULIN GLARGINE 100 UNIT/ML SUBCUT SCH (08:55)
[2020-09-29] MEDS: FUROSEMIDE INJ 160 MG in SODIUM CHLORIDE 0.9% 50 ML IV ONE ×2 (08:55→09:52)
[2020-09-29] MEDS: CEFEPIME 1,000 MG in SODIUM CHLORIDE 0.9% 100 ML IV SCH (08:55)
[2020-09-29] MEDS: amLODIPine 10 MG TABLET PO SCH (08:56)
[2020-09-29] MEDS: POLYETHYLENE GLYCOL POWDER 17 GM PACK PO SCH (08:56)
[2020-09-29] MEDS: FAMOTIDINE 20 MG TABLET PO SCH (08:56)
[2020-09-29] MEDS: CALCIUM CARBONATE CHEW 500 MG TABLET PO SCH ×3 (08:56→21:07)
[2020-09-29] MEDS: ZINC GLUCONATE 50 MG TABLET PO SCH (08:59)
[2020-09-29] MEDS: CHOLECALCIFEROL 1,000 UNIT TABLET PO SCH (08:59)
[2020-09-29] MEDS: ASCORBIC ACID 500 MG TABLET PO SCH ×2 (08:59→21:07)
[2020-09-29] MEDS: CETIRIZINE 10 MG TABLET PO SCH (08:59)
[2020-09-29] MEDS: ROCURONIUM 1,000 MG in SODIUM CHLORIDE 0.9% 175 ML IV PRN (15:18)
[2020-09-29] MEDS: SODIUM BICARBONATE 50 MEQ/50 ML VIAL IV SCH ×2 (16:12→21:07)
[2020-09-30] MEDS: INSULIN REGULAR 100 UNIT/ML SUBCUT SCH ×4 (00:06→17:24)
[2020-09-30] MEDS: METOCLOPRAMIDE 10 MG/2 ML VIAL IV SCH ×4 (00:06→17:56)
[2020-09-30] MEDS: ALBUTEROL INHALER 18 GM INH SCH ×5 (02:10→20:18)
[2020-09-30] MEDS: fentaNYL INJ 2,500 MCG in SODIUM CHLORIDE 0.9% 75 ML IV PRN ×3 (02:48→16:00)
[2020-09-30 04:37] LABS: Basophils % 0.1 % (0.0-0.8); Hematocrit 25.8 VOL% (35.7-47.0); Immature Granulocytes % 4.4 %; Lymphocytes # 0.6 10*3/uL (1.4-4.0); Lymphocytes % 2.5 % (21.3-54.2); Mean Corpuscular HGB Conc 34.9 GM/DL (32-36); Mean Corpuscular Volume 78.7 FL (87-102); Mean Platelet Volume 10.4 FL (9.6-12.0); Monocytes % 4.8 % (1.7-12.7); NRBC # 0.07 10*3/uL; Neutrophils % 88.2 % (38.7-73.9); Platelet Count 171 T/CUMM (130-400); Red Blood Count 3.28 MC/CUMM (3.8-5.5); Red Cell Distribution Width 17.6 % (9.3-17.3); White Blood Count 22.5 T/CUMM (4-12)
[2020-09-30 04:59] LABS: Band Neutrophils 1 % (0-10); Hypochromasia Slight; Lymphocytes 2 % (20-55); Microcytosis Slight; Platelet Estimate Adequate; Segmented Neutrophils 94 % (50-85); Total Cells Counted 100
[2020-09-30 05:07] LABS: ABG Base Excess -11.2 MMOL/L (-2.5-2.5); ABG HCO3 18.9 MMOL/L (20-26); ABG Oxygen Saturation 89.8 % (95-100); ABG PCO2 66.7 MM HG (35-48); ABG PO2 72.5 MM HG (80-95); ABG TCO2 20.9 MMOL/L (23-27); Allen Test Positive; Pt O2 Delivery Device Ventilator
[2020-09-30 06:17] LABS: Albumin 1.8 G/DL (3.4-5.0); Bilirubin,Total 0.9 MG/DL (0.20-1.00); Calcium 6.5 MG/DL (8.5-10.1); Osmolality,Calculated 318.1 MOS/KG (273-304); Potassium 5.8 MMOL/L (3.5-5.1); Total Protein 5.7 G/DL (6.4-8.2)
[2020-09-30] MEDS: methylPREDNISolone SOD SUC 125 MG/2 ML VIAL IV SCH ×2 (08:00→20:18)
[2020-09-30] MEDS: SODIUM BICARBONATE 50 MEQ/50 ML VIAL IV SCH ×2 (08:13→20:18)
[2020-09-30] MEDS: ASCORBIC ACID 500 MG TABLET PO SCH ×2 (08:15→20:18)
[2020-09-30] MEDS: CHOLECALCIFEROL 1,000 UNIT TABLET PO SCH (08:15)
[2020-09-30] MEDS: FAMOTIDINE 20 MG TABLET PO SCH (08:15)
[2020-09-30] MEDS: CALCIUM CARBONATE CHEW 500 MG TABLET PO SCH ×3 (08:15→20:18)
[2020-09-30] MEDS: CETIRIZINE 10 MG TABLET PO SCH (08:15)
[2020-09-30] MEDS: ZINC GLUCONATE 50 MG TABLET PO SCH (08:15)
[2020-09-30] MEDS: INSULIN GLARGINE 100 UNIT/ML SUBCUT SCH (08:16)
[2020-09-30] MEDS: POLYETHYLENE GLYCOL POWDER 17 GM PACK PO SCH (08:17)
[2020-09-30] MEDS: ENOXAPARIN 60 MG/0.6 ML SYRINGE SUBCUT SCH (08:17)
[2020-09-30] MEDS: CEFEPIME 1,000 MG in SODIUM CHLORIDE 0.9% 100 ML IV SCH (08:17)
[2020-09-30] MEDS: amLODIPine 10 MG TABLET PO SCH (08:48)
[2020-09-30] MEDS: ROCURONIUM 1,000 MG in SODIUM CHLORIDE 0.9% 175 ML IV PRN (16:00)
[2020-09-30 17:16] LABS: Herpesvirus 7 IgM Ab by IFA <1:20
== END 2020-09-30 21:56 | disposition expired | DRG 207 ==
LOC: EDUNIT# → EDBD → N.ED 14:00 → N.EDINP 17:46 → SUATTDRO 17:46 → N.CC 19:45
PROVIDERS: ADMIT Internal Medicine; ATTEND Internal Medicine